=== PATIENT | female | born 1975 | race African-American/Black ===

== ENCOUNTER 2016-08-23 11:26 | Emergency (ER) | payer OTHER ==
[2016-08-23] MEDS: NS 0.9% 1000 ML* 2,000 ML IV ONE ×2 (11:30→12:55)
[2016-08-23] MEDS ORDERED: Ondansetron INJ* 2 MG/ML VIAL IV ONE (12:43)
[2016-08-23] MEDS ORDERED: Morphine INJ* 4 MG/ML 1 ML CARPUJECT IV ONE (13:08)
[2016-08-23] MEDS ORDERED: Acetaminophen TAB* 325 MG PO ONE (13:08)
[2016-08-23 13:15] LABS: Hematocrit 34 % (35-47); Hemoglobin 11.2 g/dl (12.0-16.0); Mean Corpuscular HGB Conc 33 g/dl (31-36); Mean Corpuscular Hemoglobin 28 pg (27-31); Mean Corpuscular Volume 86 fL (80-97); Mean Platelet Volume 9 um3 (7.4-10.4); Red Blood Count 3.97 10^6/ul (4.0-5.4); Red Cell Distribution Width 16 % (10.5-15); White Blood Count 11.4 10^3/ul (3.5-10.8)
[2016-08-23 13:30] LABS: ALT 9 U/L (7-52); AST 10 U/L (13-39); Alkaline Phosphatase 52 U/L (34-104); Anion Gap 10 mmol/L (2-11); BUN/Creatinine Ratio 14.3 (8-20); Blood Urea Nitrogen 14 mg/dL (6-24); C Reactive Protein 3.43 mg/L (< 5.00); CO2 Carbon Dioxide 23 mmol/L (22-32); Calcium 9.4 mg/dL (8.6-10.3); Chloride 102 mmol/L (101-111); EGFR African American 81.3 (>60); EGFR Non-African American 63.2 (>60); Globulin 3.5 g/dL (2-4); Glucose 226 mg/dL (70-100); Lipase 23 U/L (11.0-82.0); Potassium 3.7 mmol/L (3.5-5.0); Sodium 135 mmol/L (133-145); Total Protein 7.5 g/dL (6.4-8.9)
[2016-08-23 15:17] VITALS: BP 103/57
[2016-08-23] MEDS ORDERED: Iodixanol* (CONTRAST) 320 MG/ML 100 ML SDV IV ONE (15:55)
--- NOTE | 2016-08-23 16:25 | RAD ---
Indication: Pain, vomiting and fever. CT of the abdomen and pelvis was performed after oral and IV contrast administration. Coronal and sagittal reconstructed images were obtained. Administered 95.9 ml of Contrast Visipaque 320 mgi/ml was given according to hospital protocol. Lung bases demonstrate no pleural fluid, nodules or masses. Heart is of normal size without evidence of pericardial effusion. Liver is normal in size. No focal lesions or intrahepatic biliary duct dilatation is noted. The spleen is normal in size. The gallbladder demonstrates no calcified gallstones. No pericholecystic fluid or wall thickening is identified. The common duct is not dilated. The pancreas demonstrates no mass or pancreatic duct dilatation. No adrenal masses are noted. The kidneys demonstrate symmetric nephrograms without focal lesions. CT of the pelvis demonstrates normal appendix. There is contrast in the right colon. Diverticulosis of the sigmoid colon is noted. There is a small to moderate amount of free fluid in the cul-de-sac. Myomatous changes of the uterus are noted. The sigmoid colon abuts the free fluid with some mild focal wall thickening. I cannot totally exclude diverticulitis of the sigmoid colon at this level. The urinary bladder is unremarkable. IMPRESSION: SMALL TO MODERATE DEGREE OF FREE FLUID IN THE CUL-DE-SAC WITH DIVERTICULOSIS AND POSSIBLE DIVERTICULITIS OF SIGMOID COLON WHICH IS JUST ADJACENT TO THE FREE FLUID. CLINICAL CORRELATION IS SUGGESTED. NO EVIDENCE OF BOWEL OBSTRUCTION IS NOTED. APPENDIX IS NORMAL.
[2016-08-23] MEDS ORDERED: metroNIDAZOLE TAB* 250 MG PO ONE (17:36)
[2016-08-23] MEDS ORDERED: Ciprofloxacin TAB* 500 MG PO ONE (17:36)
[2016-08-23] MEDS ORDERED: Ondansetron ODT TAB* 4 MG PO ONE (17:37)
--- NOTE | 2016-08-23 17:43 | ED ---
Abilio Kate Billy, scribed for Salomón Whittaker MD on 08/23/16 at 1310 . Complex/Multi-Sys Presentation - HPI Summary HPI Summary: Patient is a 40 year-old female coming to [facility] presenting with intermittent nausea and vomiting since yesterday morning. She also reports intermittent diffuse abdominal pain since last night. She states she felt warm last night. She also reports diffuse myalgia, rhinorrhea, but she denies sore throat. Denies any diarrhea or constipation. Denies any edema. Denies any urinary urgency, frequency, or dysuria. Nothing makes her symptoms better or worse. She has a headache at this time in the ED. Denies PSHx. Positive recent flu shot. - History Of Current Complaint Chief Complaint: EDNauseaVomitDiarrh Time Seen by Provider: 08/23/16 12:17 Hx Obtained From: Patient Onset/Duration: Gradual Onset, Lasting Hours, Still Present Timing: Intermittent, Lasting: Severity Currently: Moderate Severity Initially: Moderate Location: Pain At: - abdomen Character: Typical Headache Aggravating Factor(s): nothing Alleviating Factor(s): nothing Associated Signs And Symptoms: Positive: Headache, Nausea, Vomiting, Abdominal Pain, Fever - felt "warm" last night, Other - diffuse myalgia, rhinorrhea,. Negative: Edema, Diarrhea, Dysuria - Allergies/Home Medications Allergies/Adverse Reactions: Allergies Allergy/AdvReac Type Severity Reaction Status Date / Time No Known Allergies Allergy Verified 08/23/16 12:28 Home Medications: Home Medications Atorvastatin* [Lipitor*] 10 mg PO DAILY 08/23/16 [History Confirmed 08/23/16] DULoxetine CAP* [Cymbalta CAP*] 60 mg PO DAILY 08/23/16 [History Confirmed ] Liraglutide (NF) [Victoza (NF)] 1.2 mg SUBCUT QAM 08/23/16 [History Confirmed ] Norethin Acet & Estrad-Fe [Blisovi Fe 08/18 1-20 mg-Mcg] 1 tab PO DAILY 08/23/16 [History Confirmed 08/23/16] Valsartan/HCTZ 320/25(NF) [Diovan Hct 320/25(NF)] 1 tab PO DAILY 08/23/16 [ History Confirmed 08/23/16] metFORMIN* [Glucophage*] 1,000 mg PO BID 08/23/16 [History Confirmed 08/23/16] PMH/Surg Hx/FS Hx/Imm Hx Endocrine/Hematology History: Reports: Hx Diabetes Cardiovascular History: Reports: Hx Congestive Heart Failure, Hx Hypertension Infectious Disease History: No Infectious Disease History: Denies: Traveled Outside the [place] in Last 30 Days - Family History Known Family History: Positive: Diabetes - Social History Alcohol Use: None Substance Use Type: Reports: None Smoking Status (MU): Never Smoked Tobacco Review of Systems Positive: Fever - felt "warm" Positive: Nasal Discharge. Negative: Sore Throat Positive: Abdominal Pain, Vomiting, Nausea. Negative: Diarrhea Negative: dysuria, frequency, urgency Positive: Myalgia. Negative: Edema Positive: Headache All Other Systems Reviewed And Are Negative: Yes Physical Exam Triage Information Reviewed: Yes Vital Signs On Initial Exam: Initial Vitals Temp Pulse Resp BP Pulse Ox 100.2 F 72 18 189/101 99 08/23/16 11:28 08/23/16 11:28 08/23/16 11:28 08/23/16 11:28 08/23/16 11:28 Vital Signs Reviewed: Yes Appearance: Positive: No Pain Distress, Ill-Appearing - mildly ill-appearing Skin: Positive: Warm, Skin Color Reflects Adequate Perfusion, Dry Head/Face: Positive: Normal Head/Face Inspection Eyes: Positive: EOMI, MIKHAIL ENT: Positive: Other - dry mucous membranes Neck: Positive: Supple, Nontender Respiratory/Lung Sounds: Positive: Clear to Auscultation, Breath Sounds Present Cardiovascular: Positive: RRR Abdomen Description: Positive: Other: - mild diffuse tenderness Bowel Sounds: Positive: Hypoactive Musculoskeletal: Positive: Normal, Strength/ROM Intact Neurological: Positive: Normal, Sensory/Motor Intact, Alert, Oriented to Person Place, Time Psychiatric: Positive: Affect/Mood Appropriate Diagnostics - Vital Signs Vital Signs Temp Pulse Resp BP Pulse Ox 08/23/16 12:07 80 98 08/23/16 12:06 185/99 08/23/16 11:28 100.2 F 72 18 189/101 99 - Laboratory Lab Results: Lab Results 08/23/16 08/23/16 08/23/16 Range/Units 13:05 13:05 13:05 WBC 11.4 H (3.5-10.8) 10^3/ul RBC 3.97 L (4.0-5.4) 10^6/ul Hgb 11.2 L (12.0-16.0) g/dl Hct 34 L (35-47) % MCV 86 (80-97) fL MCH 28 (27-31) pg MCHC 33 (31-36) g/dl RDW 16 H (10.5-15) % Plt Count 292 (150-450) 10^3/ul MPV 9 (7.4-10.4) um3 Neut % (Auto) 76.9 (38-83) % Lymph % (Auto) 15.3 L (25-47) % [place] % (Auto) 7.2 (1-9) % Eos % (Auto) 0 (0-6) % Baso % (Auto) 0.6 (0-2) % Absolute Neuts (auto) 8.8 H (1.5-7.7) 10^3/ul Absolute Lymphs (auto) 1.7 (1.0-4.8) 10^3/ul Absolute Monos (auto) 0.8 (0-0.8) 10^3/ul Absolute Eos (auto) 0 (0-0.6) 10^3/ul Absolute Basos (auto) 0.1 (0-0.2) 10^3/ul Absolute Nucleated RBC 0.01 10^3/ul Nucleated RBC % 0.1 INR (Anticoag Therapy) 0.97 (0.89-1.11) APTT 24.0 L (26.0-36.3) seconds Sodium 135 (133-145) mmol/L Potassium 3.7 (3.5-5.0) mmol/L Chloride 102 (101-111) mmol/L Carbon Dioxide 23 (22-32) mmol/L Anion Gap 10 (2-11) mmol/L BUN 14 (6-24) mg/dL Creatinine 0.98 H (0.51-0.95) mg/dL Est GFR ( Amer) 81.3 (>60) Est GFR (Non-Af Amer) 63.2 (>60) BUN/Creatinine Ratio 14.3 (8-20) Glucose 226 H (70-100) mg/dL Lactic Acid (0.5-2.0) mmol/L Calcium 9.4 (8.6-10.3) mg/dL Total Bilirubin 0.90 (0.2-1.0) mg/dL AST 10 L (13-39) U/L ALT 9 (7-52) U/L Alkaline Phosphatase 52 (34-104) U/L C-Reactive Protein 3.43 (< 5.00) mg/L B-Natriuretic Peptide ( - 100) pg/mL Total Protein 7.5 (6.4-8.9) g/dL Albumin 4.0 (3.2-5.2) g/dL Globulin 3.5 (2-4) g/dL Albumin/Globulin Ratio 1.1 (1-3) Lipase 23 (11.0-82.0) U/L Beta HCG, Quant < 0.60 mIU/mL Influenza A (Rapid) (Negative) Influenza B (Rapid) (Negative) 08/23/16 08/23/16 08/23/16 Range/Units 13:05 13:05 14:53 WBC (3.5-10.8) 10^3/ul RBC (4.0-5.4) 10^6/ul Hgb (12.0-16.0) g/dl Hct (35-47) % MCV (80-97) fL MCH (27-31) pg MCHC (31-36) g/dl RDW (10.5-15) % Plt Count (150-450) 10^3/ul MPV (7.4-10.4) um3 Neut % (Auto) (38-83) % Lymph % (Auto) (25-47) % [place] % (Auto) (1-9) % Eos % (Auto) (0-6) % Baso % (Auto) (0-2) % Absolute Neuts (auto) (1.5-7.7) 10^3/ul Absolute Lymphs (auto) (1.0-4.8) 10^3/ul Absolute Monos (auto) (0-0.8) 10^3/ul Absolute Eos (auto) (0-0.6) 10^3/ul Absolute Basos (auto) (0-0.2) 10^3/ul Absolute Nucleated RBC 10^3/ul Nucleated RBC % INR (Anticoag Therapy) (0.89-1.11) APTT (26.0-36.3) seconds Sodium (133-145) mmol/L Potassium (3.5-5.0) mmol/L Chloride (101-111) mmol/L Carbon Dioxide (22-32) mmol/L Anion Gap (2-11) mmol/L BUN (6-24) mg/dL Creatinine (0.51-0.95) mg/dL Est GFR ( Amer) (>60) Est GFR (Non-Af Amer) (>60) BUN/Creatinine Ratio (8-20) Glucose (70-100) mg/dL Lactic Acid 1.9 (0.5-2.0) mmol/L Calcium (8.6-10.3) mg/dL Total Bilirubin (0.2-1.0) mg/dL AST (13-39) U/L ALT (7-52) U/L Alkaline Phosphatase (34-104) U/L C-Reactive Protein (< 5.00) mg/L B-Natriuretic Peptide 164 H ( - 100) pg/mL Total Protein (6.4-8.9) g/dL Albumin (3.2-5.2) g/dL Globulin (2-4) g/dL Albumin/Globulin Ratio (1-3) Lipase (11.0-82.0) U/L Beta HCG, Quant mIU/mL Influenza A (Rapid) Negative (Negative) Influenza B (Rapid) Negative (Negative) Result Diagrams: 08/23/16 13:05 08/23/16 13:05 Lab Statement: Any lab studies that have been ordered have been reviewed, and results considered in the medical decision making process. - CT abd/pel w CT Interpretation Completed By: Radiologist - SMALL TO MODERATE DEGREE OF FREE FLUID IN THE CUL-DE-SAC WITH DIVERTICULOSIS AND POSSIBLE DIVERTICULITIS OF SIGMOID COLON WHICH IS JUST ADJACENT TO THE FREE FLUID. CLINICAL CORRELATION IS SUGGESTED. NO EVIDENCE OF BOWEL OBSTRUCTION IS NOTED. APPENDIX IS NORMAL. - EKG 1156 Cardiac Rate: NL EKG Rhythm: Sinus Rhythm ST Segment: Normal Ectopy: None EKG Interpretation: NSR 76 bpm, no ectopy, nml ST Re-Evaluation - Re-Evaluation First Eval Re-Evaluation Time: 17:08 Change: Improved Comment: Labs and imaging reviewed with the patient. Complex Multi-Symp Course/Dx Assessment/Plan: DISCUSSED RESULTS WITH PATIENT. IMPROVED IN ED. DISCHARGE HOME STABLE. - Diagnoses Provider Diagnoses: Abdominal pain, Nausea & vomiting, Diverticulitis Discharge - Discharge Plan Condition: Stable Disposition: HOME Prescriptions: Ciprofloxacin TAB* [Cipro Tab*] 500 mg PO BID #13 tab Metronidazole [Flagyl 500 MG TAB] 500 mg PO TID #20 tab Ondansetron ODT TAB* [Zofran Odt TAB*] 4 mg PO Q6H PRN #10 tab.odt PRN Reason: Nausea Patient Education Materials: Diverticulitis (ED), Acute Nausea and Vomiting (ED ), Acute Abdominal Pain (ED) Referrals: Ruby Miller MD [Primary Care Provider] - Additional Instructions: FOLLOW UP WITH YOUR DOCTOR. RETURN TO THE EMERGENCY DEPARTMENT FOR ANY WORSENING OF YOUR CONDITION; PAIN, FEVER, YOU FEEL ILL OR QUESTIONS OR CONCERNS. The documentation as recorded by the Abilio harper Billy accurately reflects the service I personally performed and the decisions made by me, Salomón Whittaker MD.
== END 2016-08-23 18:15 | disposition home or self-care (01) ==
LOC: ED 11:26
DX: R11.2 Nausea with vomiting, unspecified (principal); R10.9 Unspecified abdominal pain; K57.92 Diverticulitis of intestine, part unspecified, without perforation or abscess without bleeding; I50.9 Heart failure, unspecified; I10 Essential (primary) hypertension
CPT/HCPCS: 36415; 74177; 80053; 83605; 83690; 83880; 84702; 85025; 85610; 85730; 86140; 87502; 93005; 96360; 96374; 96375; 99282; A9270-GY; J2270; J2405; Q9967

== ENCOUNTER 2016-10-24 17:19 | Observation (INO) | payer OTHER ==
[2016-10-24] MEDS ORDERED: Ondansetron INJ* 2 MG/ML VIAL IV ONE (17:48)
[2016-10-24] MEDS: NS 0.9% 1000 ML* 2,000 ML IV ONE (17:59)
[2016-10-24 18:05] LABS: Hematocrit 39 % (35-47); Hemoglobin 12.4 g/dl (12.0-16.0); Mean Corpuscular HGB Conc 32 g/dl (31-36); Mean Corpuscular Hemoglobin 28 pg (27-31); Mean Corpuscular Volume 88 fL (80-97); Mean Platelet Volume 9 um3 (7.4-10.4); Red Blood Count 4.39 10^6/ul (4.0-5.4); Red Cell Distribution Width 14 % (10.5-15); White Blood Count 13.8 10^3/ul (3.5-10.8)
[2016-10-24 18:29] LABS: ALT 11 U/L (7-52); AST 14 U/L (13-39); Albumin 4.4 g/dL (3.2-5.2); Alkaline Phosphatase 53 U/L (34-104); Anion Gap 12 mmol/L (2-11); BUN/Creatinine Ratio 15.8 (8-20); Blood Urea Nitrogen 27 mg/dL (6-24); C Reactive Protein < 1.00 mg/L (< 5.00); CO2 Carbon Dioxide 23 mmol/L (22-32); Calcium 9.9 mg/dL (8.6-10.3); Chloride 98 mmol/L (101-111); Creatine Kinase 69 U/L (10-223); EGFR African American 42.5 (>60); EGFR Non-African American 33.1 (>60); Globulin 3.8 g/dL (2-4); Glucose 253 mg/dL (70-100); Magnesium 1.6 mg/dL (1.9-2.7); Potassium 3.8 mmol/L (3.5-5.0); Sodium 133 mmol/L (133-145); Total Protein 8.2 g/dL (6.4-8.9)
[2016-10-24 18:43] LABS: Lithium < 0.10 mmol/L (0.6-1.2)
--- NOTE | 2016-10-24 18:48 | RAD ---
HISTORY: Syncope COMPARISONS: None VIEWS:1: Single frontal portable view of the chest at 6:20 PM FINDINGS: LINES AND TUBES: None. CARDIOMEDIASTINAL SILHOUETTE: The cardiomediastinal silhouette is normal for portable technique. PLEURA: The costophrenic angles are sharp. No pleural abnormalities are noted. LUNG PARENCHYMA: The lungs are clear. ABDOMEN: The upper abdomen is clear. There is no subphrenic gas. BONES AND SOFT TISSUES: No bone or soft tissue abnormalities are noted. IMPRESSION: NO ACTIVE CARDIOPULMONARY DISEASE.
[2016-10-24 18:53] LABS: TSH (Thyroid Stimulating Horm) 3.39 mcIU/mL (0.34-5.60)
[2016-10-24] MEDS ORDERED: Iodixanol* (CONTRAST) 320 MG/ML 100 ML SDV IV ONE (20:09)
--- NOTE | 2016-10-24 20:10 | ED ---
Lino Kate Adam, scribed for Salomón Whittaker MD on 10/24/16 at 1748 . Syncope/Near Syncope - HPI Summary HPI Summary: Pt is a 41 year old female presenting after a syncopal episode. 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 Shortly afterwards she passed out with positive LOC and then had a second syncopal episode immediately afterwards. She denies any CP, N/V/D, bloody stools , black stools, GERD, or other GI problems. She states that she had not eaten anything all day prior to the syncopal episode. EMS reports hypotension and severe diaphoresis en route to the ED. PMHx of HTN, CHF, and DM. - History Of Current Complaint Chief Complaint: EDSyncope Time Seen by Provider: 10/24/16 17:41 Hx Obtained From: Patient Onset/Duration: Sudden Onset, Lasting Minutes, Resolved Timing: Constant Context: Witnessed Activity At Onset: At Rest - Sitting down, teaching a college class Associated Head Trauma: No Aggravating Factor(s): Other - Nothing to eat all day Alleviating Factor(s): Spontaneous Resolution Associated Signs And Symptoms: Lightheadedness, Other - Feeling hot - Allergies/Home Medications Allergies/Adverse Reactions: Allergies Allergy/AdvReac Type Severity Reaction Status Date / Time Lisinopril Allergy See Comment Verified 10/24/16 17:57 all "prils" Allergy See Comment Uncoded 10/24/16 17:58 PMH/Surg Hx/FS Hx/Imm Hx Endocrine/Hematology History: Reports: Hx Diabetes Cardiovascular History: Reports: Hx Congestive Heart Failure, Hx Hypertension Infectious Disease History: Denies: Traveled Outside the [place] in Last 30 Days - Family History Known Family History: Positive: Diabetes - Social History Occupation: Employed Full-time Lives: With Family - Mother Alcohol Use: None Hx Substance Use: No Substance Use Type: Reports: None Hx Tobacco Use: No Smoking Status (MU): Never Smoked Tobacco Review of Systems Positive: Skin Diaphoresis, Other - [place] hot. Negative: Fever Neurological: Other - Lightheadedness Positive: Syncope All Other Systems Reviewed And Are Negative: Yes Physical Exam Triage Information Reviewed: Yes Vital Signs On Initial Exam: Initial Vitals Temp Pulse Resp BP Pulse Ox 97.5 F 115 16 88/64 98 10/24/16 17:31 10/24/16 17:31 10/24/16 17:31 10/24/16 17:31 10/24/16 17:31 Vital Signs Reviewed: Yes Appearance: Positive: Well-Appearing, No Pain Distress Skin: Positive: Warm, Skin Color Reflects Adequate Perfusion, Dry Head/Face: Positive: Normal Head/Face Inspection Eyes: Positive: EOMI, MIKHAIL ENT: Positive: Normal ENT inspection Neck: Positive: Supple, Nontender Respiratory/Lung Sounds: Positive: Clear to Auscultation, Breath Sounds Present Cardiovascular: Positive: RRR, Other - Hypotensive Abdomen Description: Positive: Nontender, Soft Bowel Sounds: Positive: Present Musculoskeletal: Positive: Normal, Strength/ROM Intact Neurological: Positive: Normal, Sensory/Motor Intact, Alert, Oriented to Person Place, Time Psychiatric: Positive: Affect/Mood Appropriate Diagnostics - Vital Signs Vital Signs Temp Pulse Resp BP Pulse Ox 10/24/16 17:31 97.5 F 115 16 88/64 98 - Laboratory Lab Results: Lab Results 10/24/16 Range/Units 17:37 POC Glucose (mg/dL) 212 H (74-106) mg/dL Result Diagrams: 10/24/16 17:48 10/24/16 17:48 Lab Statement: Any lab studies that have been ordered have been reviewed, and results considered in the medical decision making process. - Radiology CXR Radiology Interpretation Completed By: Radiologist - IMPRESSION: NO ACTIVE CARDIOPULMONARY DISEASE. - EKG 17:34 Cardiac Rate: Tachycardia - 114 BPM EKG Rhythm: Sinus Tachycardia Ectopy: None EKG Interpretation: Probable left atrial enlargement - Additional Comments Diagnostic Additional Comments: Lactic Acid - 4.1 Troponin I - 0.00 Course/Dx Course Of Treatment: No critical care time. Assessment/Plan: WELL IN ED. DISCUSSED RESULTS WITH PATIENT. ADMIT HOSPITALIST STABLE. - Diagnoses Provider Diagnoses: Syncope, Tachycardia, Hypomagnesemia Discharge - Discharge Plan Condition: Stable Disposition: ADMITTED TO [facility] Referrals: Ruby Miller MD [Primary Care Provider] - The documentation as recorded by the Lino harper Adam accurately reflects the service I personally performed and the decisions made by me, Salomón Whittaker MD.
[2016-10-24] MEDS ORDERED: Ondansetron INJ* 2 MG/ML VIAL IV PRN (20:51)
[2016-10-24] MEDS ORDERED: Acetaminophen TAB* 325 MG PO PRN (20:51)
[2016-10-24] MEDS ORDERED: Dextrose 50% Syringe 50 ML* 25 GM/50 ML SYRINGE IV PUSH PRN (21:05)
[2016-10-24] MEDS ORDERED: Magnesium Sulfate IV* 0.5 GM/ML 2 ML VIAL (1 GM) ONE (21:27)
--- NOTE | 2016-10-24 22:09 | RAD ---
HISTORY: Syncope, tachycardia COMPARISONS: None TECHNIQUE: Multiple contiguous axial CT scans of the chest were obtained after the administration of nonionic intravenous contrast, timed to the pulmonary arterial phase of contrast enhancement.. Coronal and sagittal multiplanar reformations are also submitted for review. FINDINGS: NECK AND THYROID: The lower neck and thyroid are unremarkable. CHEST WALL: There is no lower cervical, axillary, or supraclavicular lymphadenopathy by size criteria. HEART AND PERICARDIUM: The heart is unremarkable. AORTA AND PULMONARY VASCULATURE: There is no pulmonary arterial filling defect to suggest pulmonary embolism. There is no linear filling defect within the aorta to suggest aortic dissection. MEDIASTINUM: There is no mediastinal lymphadenopathy by size criteria. ZANE: There is no hilar lymphadenopathy by size criteria. AIRWAY AND ESOPHAGUS: The airway is unremarkable, without endobronchial filling defect. The esophagus is grossly normal. LUNG PARENCHYMA: There is patchy ground less nodular opacification within the left lower lobe and right upper lobe measuring up to 1.2 cm in size. PLEURA: No pleural abnormalities are noted. UPPER ABDOMEN: The upper abdomen is unremarkable. BONES AND SOFT TISSUES: No bone or soft tissue abnormalities are noted. OTHER: None. IMPRESSION: 1. NO PULMONARY ARTERIAL FILLING DEFECT TO SUGGEST PULMONARY EMBOLISM. 2. PATCHY GROUNDGLASS NODULARITY OF THE LEFT LOWER LUNG AND RIGHT UPPER LUNG. WHILE THIS MAY BE INFECTIOUS OR INFLAMMATORY IN NATURE, THE IMAGING APPEARANCE IS INDETERMINATE. THE RECOMMENDATIONS FOR FOLLOWUP AND MANAGEMENT OF AN INCIDENTALLY DETECTED PULMONARY NODULE GREATER THAN 8 MM IN SIZE, IN A PATIENT WITHOUT A HISTORY OF MALIGNANCY, INCLUDE FOLLOWUP CT AT 3, 9, AND 24 MONTHS, DYNAMIC CONTRAST-ENHANCED CT, PET-CT, AND/OR BIOPSY. NOTES: SIZE = AVERAGE LENGTH AND WIDTH; NODULES WITH A GROUND GLASS COMPONENT MAY REQUIRE LONGER FOLLOW UP TO EXCLUDE INDOLENT ADENOCARCINOMA.
[2016-10-24] MEDS: NS 0.9% 1000 ML* 1,000 ML IV SCH (23:37)
--- NOTE | 2016-10-25 00:24 | HP ---
HISTORY AND PHYSICAL: DATE OF ADMISSION: 10/24/16 PRIMARY CARE PROVIDER: Dr. Ruby Miller. ATTENDING PROVIDER: Mirna Powell MD * (dictated by Marques Hernandez NP) CHIEF COMPLAINT: Syncope. HISTORY OF PRESENT ILLNESS: Ms. Ledbetter is a 41-year-old female patient. She has a history of cardiomyopathy, they think viral. Her EF was restored according to her back in 2006. She is diabetic, history of CHF, not active now ; history of hypertension; hyperlipidemia; and uterine fibroids. She comes in today stating that when she was walking to class, she noticed that she was having some dyspnea a little bit more the normal. Denied having any chest pain. She says recently she was on a control pill, stopped 2 weeks ago because of excessive bleeding. She says she sat down. She was feeling hot flashes, feeling warm, she felt nauseous, she was sitting, leaned forward and the next thing she knew that she had tunneled vision and the next think she knew her students were standing over her trying to get her to awaken. Apparently, the students tried standing her up and then she had another episode where she fainted again with standing her up. She denied having any shortness of breath right before the event or any chest pain, but she did admit to dyspnea on exertion. She denied having any abdominal pain. She said she vomited, had 1 episode of diarrhea. She states her appetite has been down for the last couple of days. She has not really been eating or drinking. She has been taking her mild diuretics though continuously like she is supposed to and also she has increased her Victoza at 1.2 mg and she says her appetite has been suppressed. She denies having any fevers or chills. No abdominal discomfort. She says she does not have pain with breathing. She has passed out once before and again, she denied having any palpitation. She came in, she was evaluated, it was found that she was in acute renal failure. In addition to this, her lactic acid was elevated and it was also noted that she was tachycardic and her blood pressures were on the low side, they were 88/64. She says that she does not feel lightheaded now. She just feels cold and denies having any chest discomfort. She was evaluated. Because of the syncopal episode, we were asked to evaluate for admission. PAST MEDICAL HISTORY: Significant for: 1. History of CHF. 2. Diabetes. 3. Viral cardiomyopathy. 4. Hypertension. 5. Hyperlipidemia. 6. Uterine fibroid. PAST SURGICAL HISTORY: Denied. HOME MEDICATIONS: According to her last primary's note, include: 1. Victoza 1.2 mg subcu q.a.m. 2. Cymbalta 60 mg daily. 3. Lipitor 10 mg daily. This was stopped, but the patient restarted it on her own. 4. Glucophage 1000 mg p.o. b.i.d. 5. Diovan/hydrochlorothiazide 1 tablet daily. 6. Zofran 4 mg every 6 hours as needed. ALLERGIES TO MEDICATIONS: Include LISINOPRIL. FAMILY HISTORY: Both her parents had coronary artery disease. Mother had a provoked blood clot after her surgery. Her father had a history of diabetes. SOCIAL HISTORY: She does not smoke. She does not drink. She is a teacher at [email or web address]. She does not appoint a healthcare proxy at this point. REVIEW OF SYSTEMS: There is no documented fever. She denied having any significant weight change. There was no double vision. She denies having any ear discharge. There is no rhinorrhea. No sore throat. No thyroid enlargement. She denies having any chest pain. No shortness of breath. No orthopnea. No nocturnal dyspnea. There was no abdominal pain. No nausea. No vomiting. No dysuria. No frequency. No seizure. There was a loss of consciousness. No pruritus and no skin ulcerations. Review of 14 systems completed, all others were negative. PHYSICAL EXAMINATION GENERAL: At this time, Ms. Ledbetter is a 41-year-old female patient. She does not appear to be in any acute distress. She is sitting in the ER stretcher. She is awake and she is alert. VITAL SIGNS: Blood pressure 88/64, last blood pressure was 114/86. Her heart rate was 115 when she came in, it is now 104. O2 sats are 100%; respirations 18 ; temp 97.9. HEENT: Head is atraumatic, normocephalic. Eyes: EOMs are intact. Sclerae anicteric and not pale. Throat: Oral mucosa appeared to be dry. No oropharyngeal erythema. NECK: Supple. LUNGS: Clear to auscultation bilaterally. No wheezes, rales, or rhonchi. HEART: Sounds S1, S2. Regular rate and rhythm. She is tachycardic. ABDOMEN: Soft, flat, nontender. Bowel sounds were present. EXTREMITIES: Pulses were 2+ throughout. She is able to move all 4 extremities. NEUROLOGIC: She is awake, alert, and oriented x3. Tongue midline. Audio Production Manager were equal. She had no gross focal deficits. SKIN: Intact. LABORATORY DATA/DIAGNOSTIC STUDIES: Today revealed a WBC of 13.8, RBC of 4.39 , hemoglobin 12.4, hematocrit 39, platelet count of 311. INR of 0.89, PTT of 23.7. The sodium 133, potassium 3.8, chloride of 98, bicarb 23, BUN 27, creatinine 1.71, baseline creatinine is right around 1, her glucose was 250, lactic 4.1, calcium 9.9, mag 1.6, being replaced. Total bili 0.8, AST 14, ALT 11, alk phos 53. CK 69, CK-MB 1, troponin 0, CRP less than 1. TSH 3.36. Beta hCG negative. Toxicology was negative for lithium. She had a chest x-ray obtained today, which revealed no active cardiopulmonary disease. There was an EKG obtained today, showed sinus tachycardia with ST depressions in V4, 5, and 6, it is subtle. She has had a depression in V5 and 6 in the past , 4 was not depressed in the past. Again, she is tachycardic, rate of 114. Old medical records were reviewed. ASSESSMENT AND PLAN: Ms. Ledbetter is a 41-year-old female patient coming into the ER today with complaints of syncopal episode while sitting down at work. On evaluation in the ER today, it was noted that she appeared to be in acute renal failure, lactic acid was elevated, she was hypotensive and tachy when she came in. Hospitalist service was asked to evaluate. She will be admitted under observation status to our ICU for: 1. Syncope. Etiology is unclear. You know I am concerned. She came in, she is tachy, hypotensive. I do think we should check a CTA. She was on control recently. She did have that dyspnea on exertion prior to the event and she was sitting down. I would like to place her on telemetry, do the CTA, check an echo, check orthostatics. It could be just dehydration but with dyspnea on exertion, I would like to make sure there are not any other etiologies. We will hydrate the patient and we will continue to follow. 2. Lactic acidosis. This could be related to the fact she was taking metformin and her kidney function has gone up. I do not think she is actively infected. She does have a little bit of a white count, but I think this is stress related, a leukemoid reaction causing the leukocytosis, so I think we will just hydrate her and monitor. If she had any fever, then I will put her on empiric antibiotic therapy and we will repeat the lactic acid after fluids. 3. Acute renal failure, again probably secondary to prerenal related to dehydration. She was taking hydrochlorothiazide. She has not really been eating or drinking. I will send off a FENa. We will get a bladder scan. We will follow. 4. Low magnesium. We will replace. 5. History of cardiomyopathy and congestive heart failure. She says her EF is back to baseline now, so it has probably resolved. We will repeat the echo. 6. Diabetes. She will be on a lispro sliding scale. 7. Hypertension. I am going to hold her meds for the time being as she was hypotensive when she came in. Her blood pressure is improving. 8. Hyperlipidemia. Continue statin therapy. 9. Uterine fibroid. Her H and H is stable. She can follow up with her primary for this. In fact, H and H appears a little hemoconcentrated, so I think again arguing that she is probably dehydrated. 10. DVT prophylaxis. She will be placed on heparin subcu. 11. Code status. Full code. 12. Fluid, electrolytes, and nutrition. She can have a consistent carb diet. TIME SPENT: Time spent on the admission was 60 minutes; greater than half the time spent [id number] with the patient obtaining my history and physical, the other half the time was spent going over the plan of care with the patient and implementing the plan of care. I did discuss the plan of care with my attending physician, Dr. Coreas, he is in agreement. MARQUES HERNANDEZ NP CC: Dr. Ruby Miller* [id number]/[facility] #: [id number] JOSEPH
[2016-10-25] MEDS: Heparin VIAL(*) 5000 UNITS/ML VIAL (FIVE THOUSAND) SUBCUT SCH ×4 (02:19→22:00)
[2016-10-25 04:39] LABS: Urine Bacteria Absent (Absent); Urine Bilirubin Negative (Negative); Urine Glucose 1+(50 mg/dL) (Negative); Urine Nitrite Negative (Negative)
[2016-10-25 05:19] LABS: Hematocrit 31 % (35-47); Hemoglobin 10.2 g/dl (12.0-16.0); Mean Corpuscular HGB Conc 33 g/dl (31-36); Mean Corpuscular Hemoglobin 29 pg (27-31); Mean Corpuscular Volume 88 fL (80-97); Mean Platelet Volume 9 um3 (7.4-10.4); Red Blood Count 3.52 10^6/ul (4.0-5.4); Red Cell Distribution Width 14 % (10.5-15); White Blood Count 8.3 10^3/ul (3.5-10.8)
[2016-10-25 05:33] LABS: BUN/Creatinine Ratio 24.8 (8-20); EGFR African American 74.6 (>60); Magnesium 2.4 mg/dL (1.9-2.7)
[2016-10-25 05:35] LABS: Potassium 3.7 mmol/L (3.5-5.0)
[2016-10-25 05:40] LABS: Calcium 8.1 mg/dL (8.6-10.3)
[2016-10-25] MEDS: NS 0.9% 1000 ML* 1,000 ML IV SCH (07:51)
[2016-10-25] MEDS: Insulin LISPRO* 1 UNITS UNIT SUBCUT SCH ×3 (08:28→17:49)
[2016-10-25] MEDS: Atorvastatin* 10 MG TAB PO SCH (08:38)
[2016-10-25] MEDS: DULoxetine DR CAP* 60 MG CAP.DR PO SCH (08:38)
[2016-10-25] MEDS ORDERED: NS 0.9% 1000 ML* 1,000 ML IV SCH (10:00)
--- NOTE | 2016-10-25 13:00 | ECHO ---
Patient: MONICA SELLERS [facility] Rec#: [id number] : 1975 Date: 10/25/2016 Age: 41y Height: 154.9 cm / 61.0 in Weight: 70.8 kg / 156.0 lbs Sex: F BSA: 1.7 Room#: ICU 9 Admit Date#: 10/24/2016 Type: Inpatient Referring: Marques Hernandez NP Reading: Jackelin Rae MD Grant Coordinator: Елена Guzman RN RDCS CC: JOSEPH HUNT Transthoracic Echocardiogram Indication: Syncope, hypotension BP: 105/60 HR: 80 Rhythm: NSR Findings History: Viral cardiomyopathy in 2006, CHF, HTN, DM, dyslipidemia. Technical Comments: The study quality is fair. The study is technically limited due to patient body habitus. Completed at 1120. Left Ventricle: The left ventricular chamber size is normal. There is global hypokinesis of the left ventricle with minor regional variation.septum appears dyskinetic. There is mild to moderately decreased left ventricular systolic function. The estimated ejection fraction is 40-45%. Abnormal left ventricular diastolic function is observed. Left Atrium: The left atrial chamber size is normal. Right Ventricle: The right ventricular cavity size is normal. The right ventricular global systolic function is low normal. Right Atrium: The right atrial cavity size is normal. There is evidence of an atrial septal aneurysm. Aortic Valve: The aortic valve is trileaflet. There is no evidence of aortic regurgitation. There is no evidence of aortic stenosis. Mitral Valve: The mitral valve leaflets are mildly thickened. There is mild mitral regurgitation. There is no evidence of mitral stenosis. Tricuspid Valve: The tricuspid valve leaflets are normal. There is trace to mild tricuspid regurgitation. No pulmonary hypertension is noted. There is no tricuspid stenosis. Pulmonic Valve: The pulmonic valve appears normal. There is trace to mild pulmonic regurgitation. There is no pulmonic stenosis. Pericardium: A trivial pericardial effusion is visualized. A pericardial fat pad is visualized. Aorta: There is no dilatation of the ascending aorta. There is no dilatation of the aortic arch. The aortic root is normal in size. Pulmonary Artery: The main pulmonary artery appears normal. Venous: The inferior vena cava appears normal in size. There is less than 50% respiratory change in the inferior vena cava dimension. Conclusions There is global hypokinesis of the left ventricle with minor regional variation.septum appears dyskinetic. The estimated ejection fraction is 40-45%. The right ventricular global systolic function is low normal. There is evidence of an atrial septal aneurysm. There is mild mitral regurgitation, eccentric jet directed along the anterior leaflet. There is trace to mild tricuspid regurgitation. Prior echos not available for comparison. Measurements Name Value Normal Range RVIDd (AP) 2D 2.8 cm (0.9 - 2.6) RVDdMajor (2D) 3.1 cm (2.2 - 4.4) RAd ISD 4CH 3.4 cm (3.4 - 4.9) RA (A4C)W 3.3 cm (2.9 - 4.6) IVSd (2D) 0.9 cm (0.6 - 1) LVPWd (2D) 0.9 cm (0.6 - 1) LVIDd (2D) 3.8 cm (3.6 - 5.4) LVIDs (2D) 3 cm - LV FS (2D) 21 % (25 - 45) Aortic Annulus 2 cm (1.4 - 2.6) Ao root diameter (2D) 3 cm (2.1 - 3.5) Ascending Ao 2.7 cm (2.1 - 3.4) Aortic arch 2.4 cm (1.8 - 3.4) LA dimension (AP) 2D 2.8 cm (2.3 - 3.8) LAd ISD 4CH 3.6 cm (2.9 - 5.3) LA ISD 4CH W 3.2 cm (2.5 - 4.5) Name Value Normal Range LA ESV SP 4CH (A/L) 22 ml - LA ESV SP 2CH (A/L) 29 ml - LA ESV BP (A/L) 26 ml - LA ESV BP (A/L) index 15.2 ml/m2 - LA ESV SP 4CH (MOD) 18 ml - LA ESV SP 2CH (MOD) 28 ml - Name Value Normal Range MV E-wave Vmax 0.75 m/sec - MV deceleration time 193 msec - MV A-wave Vmax 0.77 m/sec - MV E:A ratio 1 ratio - LV septal e' Vmax 0.06 m/sec - LV lateral e' Vmax 0.11 m/sec - LV E:e' septal ratio 12.5 ratio - LV E:e' lateral ratio 6.8 ratio - Name Value Normal Range AV Vmax 1.4 m/sec - AV VTI 26.4 cm - AV peak gradient 6.8 mmHg - AV mean gradient 4 mmHg - LVOT Vmax 0.93 m/sec - LVOT VTI 17.5 cm - DAVI Vmax 0.67 m/sec - Name Value Normal Range TR Vmax 1.9 m/sec - TR peak gradient 14 mmHg - RAP 8 mmHg - RVSP 22 mmHg - IVC diameter 1.3 cm - Name Value Normal Range PV Vmax 0.71 m/sec -
--- NOTE | 2016-10-25 14:19 | PN ---
Subjective Date of Service: 10/25/16 Interval History: Pt stated that she developed N/V/D just before her first syncope and had another syncope when on toilet seat yesterday. today c/o no abd pain and nausea resolved. no diarrhea noted. Feels tired, but well. Objective Active Medications: Acetaminophen (Tylenol Tab*) 650 mg PO Q4H PRN PRN Reason: FEVER/PAIN Atorvastatin Calcium (Lipitor*) 10 mg PO DAILY [facility] Last Admin: 10/25/16 08:38 Dose: 10 mg Dextrose (D50w Syringe 50 Ml*) 12.5 gm IV PUSH .FOR FS < 60 - SS PRN PRN Reason: FS < 60 Duloxetine HCl (Cymbalta Cap*) 60 mg PO DAILY [facility] Last Admin: 10/25/16 08:38 Dose: 60 mg Heparin Sodium (Porcine) (Heparin Vial(*)) 5,000 units SUBCUT Q8HR [facility] Last Admin: 10/25/16 12:56 Dose: Not Given Sodium Chloride (Ns 0.9% 1000 Ml*) 1,000 mls @ 75 mls/hr IV PER RATE [facility] Stop: 10/25/16 23:59 Insulin Human Lispro (Humalog*) 0 units SUBCUT AC [facility] PRN Reason: Protocol Last Admin: 10/25/16 12:53 Dose: 3 units Ondansetron HCl (Zofran Inj*) 4 mg IV Q6H PRN PRN Reason: NAUSEA Vital Signs 10/24/16 10/24/16 10/24/16 20:51 21:00 21:16 Temperature 98.0 F Pulse Rate 106 104 Respiratory 18 18 Rate Blood Pressure 112/67 114/86 (mmHg) O2 Sat by Pulse 100 100 Oximetry 10/24/16 10/24/16 10/24/16 21:31 21:40 22:00 Temperature Pulse Rate 100 Respiratory 20 18 Rate Blood Pressure 113/82 (mmHg) O2 Sat by Pulse 100 100 Oximetry 10/24/16 10/24/16 10/24/16 22:27 22:30 22:45 Temperature Pulse Rate 103 103 104 Respiratory 19 16 19 Rate Blood Pressure 112/67 117/72 (mmHg) O2 Sat by Pulse 99 100 98 Oximetry 10/24/16 10/24/16 10/24/16 23:00 23:15 23:30 Temperature Pulse Rate 105 104 104 Respiratory 18 20 17 Rate Blood Pressure 108/72 116/77 119/65 (mmHg) O2 Sat by Pulse 93 96 97 Oximetry 10/24/16 10/25/16 10/25/16 23:45 00:00 00:15 Temperature Pulse Rate 102 101 104 Respiratory 19 17 22 Rate Blood Pressure 108/66 111/73 110/71 (mmHg) O2 Sat by Pulse 99 100 97 Oximetry 10/25/16 10/25/16 10/25/16 00:29 01:00 02:00 Temperature Pulse Rate 103 103 100 Respiratory 20 20 20 Rate Blood Pressure 109/62 102/64 (mmHg) O2 Sat by Pulse 97 98 99 Oximetry 10/25/16 10/25/16 10/25/16 02:06 02:08 03:00 Temperature Pulse Rate 102 Respiratory 20 17 20 Rate Blood Pressure 103/75 (mmHg) O2 Sat by Pulse 99 Oximetry 10/25/16 10/25/16 10/25/16 04:00 05:00 05:46 Temperature 99.1 F Pulse Rate 93 Respiratory 24 19 17 Rate Blood Pressure 109/72 (mmHg) O2 Sat by Pulse 100 Oximetry 10/25/16 10/25/16 10/25/16 06:00 06:58 07:00 Temperature Pulse Rate 85 92 94 Respiratory 18 21 20 Rate Blood Pressure 113/74 118/76 116/80 (mmHg) O2 Sat by Pulse 100 99 100 Oximetry 10/25/16 10/25/16 10/25/16 07:03 07:04 08:00 Temperature 98.1 F Pulse Rate 90 94 84 Respiratory 18 Rate Blood Pressure 118/80 116/80 119/75 (mmHg) O2 Sat by Pulse 99 Oximetry 10/25/16 10/25/16 10/25/16 09:00 10:00 10:24 Temperature Pulse Rate 86 82 81 Respiratory 8 15 18 Rate Blood Pressure 105/60 (mmHg) O2 Sat by Pulse 99 100 100 Oximetry 10/25/16 10/25/16 10/25/16 11:00 11:38 11:52 Temperature 98.3 F Pulse Rate 87 89 87 Respiratory 17 17 16 Rate Blood Pressure 109/65 (mmHg) O2 Sat by Pulse 99 100 100 Oximetry 10/25/16 10/25/16 12:06 12:07 Temperature Pulse Rate Respiratory 16 16 Rate Blood Pressure (mmHg) O2 Sat by Pulse Oximetry Oxygen Devices in Use Now: None Appearance: 41 yo f in nAd, aAOx3 Eyes: No Scleral Icterus, PERRLA Ears/Nose/Mouth/Throat: NL Teeth, Lips, Gums, Mucous Membranes Moist Neck: NL Appearance and Movements; NL JVP, Trachea Midline Respiratory: Symmetrical Chest Expansion and Respiratory Effort, Clear to Auscultation Cardiovascular: NL Sounds; No Murmurs; No JVD, RRR Abdominal: No Hepatosplenomegaly, - - mild diffuse abd tenderness, no rebound, no guarding, BS+ Lymphatic: No Cervical Adenopathy Extremities: No Edema, No Clubbing, Cyanosis Skin: No Rash or Ulcers, No Nodules or Sclerosis Neurological: Alert and Oriented x 3, NL Muscle Strength and Tone Result Diagrams: 10/25/16 04:09 10/25/16 04:09 Additional Lab and Data: Lab Results 10/24/16 Range/Units 17:37 POC Glucose (mg/dL) 212 H (74-106) mg/dL Microbiology and Other Data: Microbiology 10/24/16 23:35 Nasal Screen MRSA (PCR)(MORALES) - Final Nasal Mrsa Negative Assess/Plan/Problems-Billing Assessment: 41 yo F with h/o DM, dyslipidemia, post viral cardiomyopathy presented after 2 syncopal episodes while having N/V/D - Patient Problems (1) Syncope Comment: due to dehydration and hypotension secondary to N/V/D- most likely viral gastroenteritis hypotension -resolved, will lower IVF and stop at midnight. (2) HTN (hypertension) Comment: hypotension resolved. Holding Diovan due to hypotension and dehydration (3) DM2 (diabetes mellitus, type 2) Comment: cont ISS Holding Victosa and metformin (4) Acute renal failure Comment: due to dehydration, resolving (5) DVT prophylaxis Comment: heparin sc (6) Cardiomyopathy Comment: EF 45% on Echo, known post viral cardiomyopathy no arrythmia noted on telem. cont telem , transfer out of ICU Status and Disposition: inpatient, poss d/c in AM
[2016-10-26 06:06] LABS: Hematocrit 29 % (35-47); Hemoglobin 9.6 g/dl (12.0-16.0); Mean Corpuscular HGB Conc 33 g/dl (31-36); Mean Corpuscular Hemoglobin 29 pg (27-31); Mean Corpuscular Volume 87 fL (80-97); Mean Platelet Volume 9 um3 (7.4-10.4); Red Blood Count 3.34 10^6/ul (4.0-5.4); Red Cell Distribution Width 14 % (10.5-15); White Blood Count 6.4 10^3/ul (3.5-10.8)
[2016-10-26] MEDS: Heparin VIAL(*) 5000 UNITS/ML VIAL (FIVE THOUSAND) SUBCUT SCH (06:09)
[2016-10-26 06:26] LABS: Calcium 7.9 mg/dL (8.6-10.3); EGFR African American 84.8 (>60); Potassium 3.9 mmol/L (3.5-5.0)
[2016-10-26 07:39] VITALS: BP 134/82
[2016-10-26] MEDS: Atorvastatin* 10 MG TAB PO SCH (08:41)
[2016-10-26] MEDS: Insulin LISPRO* 1 UNITS UNIT SUBCUT SCH (08:41)
[2016-10-26] MEDS: DULoxetine DR CAP* 60 MG CAP.DR PO SCH (09:21)
--- NOTE | 2016-10-26 22:38 | DS ---
DISCHARGE SUMMARY: DATE OF ADMISSION: 10/24/16 DATE OF DISCHARGE: 10/26/16 PRIMARY CARE PROVIDER: Ruby Miller MD DISCHARGE DIAGNOSES: 1. Acute renal failure due to dehydration. 2. Nausea, vomiting and diarrhea most likely due to viral gastroenteritis. 3. Syncopal episodes due to dehydration and hypotension secondary to above- mentioned. SECONDARY DIAGNOSES: 1. History of viral cardiomyopathy. 2. History of diabetes. 3. History of hypertension. 4. Dyslipidemia. MEDICATIONS AT DISCHARGE: Unchanged from admission and include: 1. Atorvastatin 10 mg daily. 2. Cymbalta 60 mg daily. 3. Victoza 1.2 mg subcutaneously daily. 4. Zofran on a p.r.n. basis. 5. Diovan 320/25 one tablet daily. 6. Glucophage 1000 mg b.i.d. LABORATORY DATA: At discharge include white blood cell count of 6.4, hemoglobin of 9.6, hematocrit of 29, and platelets of 234. Sodium was 135, potassium 3.9, chloride 108, carbon dioxide 23, BUN 15, creatinine 0.94. The patient's creatinine at admission was noted to be 1.7. The patient's white blood cell count at admission was 13.8. The patient also had transthoracic echocardiogram on 10/24/16, which showed EF of 40% to 45% with global hypokinesis of the left ventricle with minor regional variation with dyskinetic septum. There was evidence of an atrial septal aneurysm. There was mild mitral valve regurgitation. There was no prior echocardiogram available for comparison. CT angiogram of the chest obtained on 10/24/16, impression: "No pulmonary arterial filling defects to suggest pulmonary embolism. Two patchy ground glass nodularity of the left lower lung and right upper lobe. While this may be infectious and inflammatory in nature, the imaging appearance is indeterminate. Recommendation for followup and management of an incidentally detected pulmonary nodule greater than 8 mm in size and the patient without the history of malignancy include followup at 3, [address] versus dynamic contrast enhanced CT, PET CT and/or a biopsy. The nodular opacification with the left lower lobe was measuring 1.2 cm in size." HOSPITALIZATION COURSE: Francisca Ledbetter is a 41-year-old female with history of viral cardiomyopathy in the past and CHF due to that in the past, who also is a diabetic. She is a teacher at [employer]. She stated that in the morning on the day of admission, she did not have time to eat and later on she developed , nausea, vomiting, and diarrhea almost at the same time when she felt nauseated and felt like having a bowel moment, she originally passed out. She lost consciousness, but then she came about within seconds, stated that she needed to go to the bathroom. The second syncopal episode occurred on the toilet seat when she had diarrhea and nausea. When she presented to the ED, her systolic pressures were in the 80s. She had acute renal failure with creatinine of 1.7 and lactic acid elevation of 4. I suspect the lactic acid elevation of 4 was due to combination of hypoperfusion due to hypotension, syncope as well as acute renal failure . The patient was placed on intravenous fluids and her creatinine recovered to 0.[address] angiogram of the chest obtained initially showed no marked abnormalities apart from lung nodules of 1.2 cm for which a followup CT was recommended as above-mentioned in 3, 9 and 24 months. The patient's hemoglobin A1c noted to be 11.6 and she is recommended to follow up with her primary care provider in regards of further management of her diabetes. Otherwise, her medications at discharge are unchanged. Please also note the patient had a bout of diverticulitis in July 2016. She still feels that she is not fully recovered and occasionally has abdominal cramping after the antibiotics that she took in July. She also noted that during her diverticulitis episode, she had black stools and bloody stools. At this point of discharge, the patient is recommended to follow up with map compiler for possibility of colonoscopy. The current episode of nausea, vomiting and diarrhea is most likely due to viral gastroenteritis. She had mild lower abdominal tenderness bilaterally on evaluation, which resolved by the time of discharge. PHYSICAL EXAMINATION AT THE TIME OF DISCHARGE: Blood pressure of 134/82, heart rate of 82 and regular, respiratory rate 16, oxygen saturation 100% on room air , temperature of 98.2. General: The patient is a very pleasant 41-year-old female who is in no acute distress. Alert, awake and oriented x3. HEENT: Head: Atraumatic, normocephalic. Eyes: Pupils equal and reactive to light and accommodation. Oropharynx clear. Mucosa moist. Neck: Supple, no JVD and no bruits bilaterally. Cardiovascular: Regular rate and rhythm. No murmurs. Respiratory: Clear to auscultation bilaterally. Abdomen: Soft and nontender. Bowel sounds present in all 4 quadrants. Extremities: There is no edema. Pulses 2+ bilaterally. No clubbing or cyanosis. Neuro Evaluation: Speech clear. Cranial nerves II through XII grossly intact. Motor strength is 5/5 bilaterally. Please note that this is a short summary of the patient's hospital stay. Please refer to further medical records for details. TIME SPENT: Approximately 40 minutes were spent on the patient's discharge. CC: Ruby Miller MD* [id number] #: [id number]
== END 2016-10-26 11:14 | disposition home or self-care (01) ==
LOC: ED 17:19 → ICU 20:13 → INTOOBSV 20:13 → MEDTELE 10-25 09:46
PROVIDERS: ADMIT Hospitalist; ATTEND Internal Medicine
DX: N17.9 Acute kidney failure, unspecified (principal); R55 Syncope and collapse; E86.0 Dehydration; R11.2 Nausea with vomiting, unspecified; R19.7 Diarrhea, unspecified; I95.9 Hypotension, unspecified; E83.42 Hypomagnesemia; E87.2 Acidosis; I11.0 Hypertensive heart disease with heart failure; I50.9 Heart failure, unspecified; I42.9 Cardiomyopathy, unspecified; E78.5 Hyperlipidemia, unspecified; D25.9 Leiomyoma of uterus, unspecified; Z79.899 Other long term (current) drug therapy; Z79.84 Long term (current) use of oral hypoglycemic drugs; Z88.8 Allergy status to other drugs, medicaments and biological substances; Z32.02 Encounter for pregnancy test, result negative
CPT/HCPCS: 36415; 71010; 71275; 80048; 80053; 80178; 81003; 81015; 82550; 82553; 83036; 83605; 83735; 84443; 84484; 84702; 85025; 85610; 85730; 86140; 87086; 87641; 93005; 93306; 94760; 96361; 96374; 96375; 99284; A9270-GY; G0378; J2405; J3475; Q9967

== ENCOUNTER 2018-01-13 18:57 | Emergency (ER) | payer OTHER ==
[2018-01-13] MEDS ORDERED: NS 0.9% 1000 ML* 1,000 ML IV ONE (19:35)
[2018-01-13] MEDS ORDERED: Metoclopramide IV* 5 MG/ML 2 ML VIAL IV SLOW PU ONE (19:35)
[2018-01-13] MEDS ORDERED: Ketorolac INJ* 30 MG/ML 1 ML VIAL IV PUSH ONE (19:36)
--- NOTE | 2018-01-13 20:25 | ED ---
GI/ HPI - HPI Summary HPI Summary: 42F presents with abdominal pain for the past couple days. She also admits to nausea and vomiting. She states that she had her period two weeks ago and then she started bleeding today. Unsure if . No pain with urination. No fevers. No flank pain. No abnormal vaginal discharge and diarrhea constipation. No previous belly surgeries. Has a history of fibroids. States his never had this pain this severe before. Did not take anything for pain. Has not been able to keep anything down. she is diabetic. - History of Current Complaint Chief Complaint: EDAbdPain Time Seen by Provider: 01/13/18 19:24 Stated Complaint: ABD PAIN Pain Intensity: 5 - Additional Pertinent History Primary Care Physician: JOSSIE - Allergy/Home Medications Allergies/Adverse Reactions: Allergies Allergy/AdvReac Type Severity Reaction Status Date / Time MS Lisinopril [Lisinopril] Allergy See Comment Verified 01/13/18 19:04 all "prils" Allergy See Comment Uncoded 01/13/18 19:04 PMH/Surg Hx/FS Hx/Imm Hx Endocrine/Hematology History: Reports: Hx Diabetes - INSULIN DEPENDANT Cardiovascular History: Reports: Hx Congestive Heart Failure, Hx Hypertension Denies: Hx Pacemaker/ICD Respiratory History: Denies: Hx Asthma History: Denies: Hx Renal Disease Sensory History: Reports: Hx Contacts or Glasses Denies: Hx Hearing Aid Opthamlomology History: Reports: Hx Contacts or Glasses Psychiatric History: Reports: Hx Depression Denies: Hx Panic Disorder Infectious Disease History: No Infectious Disease History: Denies: Traveled Outside the [place] in Last 30 Days - Family History Known Family History: Positive: Diabetes - Social History Alcohol Use: None Hx Substance Use: No Substance Use Type: Reports: None Hx Tobacco Use: No Smoking Status (MU): Never Smoked Tobacco Review of Systems Negative: Fever Negative: Chest Pain Negative: Shortness Of Breath Positive: Abdominal Pain, Vomiting, Nausea. Negative: Diarrhea Negative: dysuria All Other Systems Reviewed And Are Negative: Yes Physical Exam Triage Information Reviewed: Yes Vital Signs On Initial Exam: Initial Vitals Temp Pulse Resp BP Pulse Ox 97.6 F 84 22 118/78 100 01/13/18 18:59 01/13/18 18:59 01/13/18 18:59 01/13/18 18:59 01/13/18 18:59 Vital Signs Reviewed: Yes Appearance: Positive: Well-Appearing Skin: Positive: Warm, Dry Head/Face: Positive: Normal Head/Face Inspection Eyes: Positive: Normal, Conjunctiva Clear ENT: Positive: Pharynx normal Respiratory/Lung Sounds: Positive: Clear to Auscultation, Breath Sounds Present Cardiovascular: Positive: Normal, RRR Abdomen Description: Positive: Soft, Other: - mild diffuse tenderness greatest pelvic area Bowel Sounds: Positive: Present Pelvic Exam: Positive: External Exam Normal, Speculum Exam Normal, Bimanual Exam Normal, No Cerv. Motion Tender, Blood Musculoskeletal: Positive: Normal Neurological: Positive: Normal Psychiatric: Positive: Normal Diagnostics - Vital Signs Vital Signs Temp Pulse Resp BP Pulse Ox 01/13/18 18:59 97.6 F 84 22 118/78 100 - Laboratory Result Diagrams: 01/13/18 20:39 01/13/18 20:39 Lab Statement: Any lab studies that have been ordered have been reviewed, and results considered in the medical decision making process. - Ultrasound No standard instances Ultrasound Interpretation: No Acute Changes Ultrasound Interpretation Completed By: Radiologist - IMPRESSION: 1. FIBROID UTERUS. 2. THE ENDOMETRIUM IS NOT WELL VISUALIZED. 3. NO SONOGRAPHIC FEATURES OF TORSION. PLEASE NOTE THAT PARTIAL OR INTERMITTENT TORSION MAY BE SONOGRAPHICALLY NORMAL. Re-Evaluation - Re-Evaluation First Eval Re-Evaluation Time: 22:47 Change: Unchanged Comment: patient sleeping in room, abd pain still diffuse, unable to get IV in patient Second Eval Re-Evaluation Time: 23:34 Change: Improved Comment: feeling better, will discharge with zofran and reglan GIGU Course/Dx - Course Course Of Treatment: 42F presents with abdominal pain for the past couple days. She also admits to nausea and vomiting. She states that she had her period two weeks ago and then she started bleeding today. Unsure if . No pain with urination. No fevers. No flank pain. No abnormal vaginal discharge and diarrhea constipation. No previous belly surgeries. Has a history of fibroids. States his never had this pain this severe before. Did not take anything for pain. Has not been able to keep anything down. On exam diffusely tender. Greatest in the suprapubic region. wbc normal. crp normal. pelvic u/s shows fibroids. pelvic exam no CMT. normal on period. unable to get IV so gave oral meds. urine likely contaminent as has period will wait for culture. will give reglan for nausea. patient understand and agrees with plan. - Diagnoses Differential Diagnoses - Female: Gastroenteritis (Viral), Gastroenteritis ( Bacterial), Urinary Tract Infection Provider Diagnoses: Abdominal pain, Vomiting Discharge - Sign-Out/Discharge Documenting (check all that apply): Discharge/Admit/Transfer - Discharge Plan Condition: Good Disposition: HOME Prescriptions: Metoclopramide TAB* [Reglan TAB*] 5 mg PO Q6H PRN #12 tab PRN Reason: Nausea Patient Education Materials: Acute Nausea and Vomiting (ED) Referrals: Mohan Monroy MD [Primary Care Provider] - Additional Instructions: Can take Zofran or reglan every 6 hours as needed for nausea Drink small amounts of fluid as tolerated When able to eat follow BRAT diet: Bananas, rice, applesauce, toast Take ibuprofen or Tylenol for pain as needed every 6 hours Follow up with primary within 5 days Return to ED if develop fever that does not respond to Tylenol or ibuprofen, severe abdominal pain, or any new or worsening symptoms - Billing Disposition and Condition Condition: GOOD Disposition: Home
[2018-01-13] MEDS ORDERED: Morphine VIAL* 4 MG/ML VIAL (1 ml vial) IV ONE (20:50)
[2018-01-13 20:52] LABS: ABS Basophils 0 10^3/ul (0-0.2); ABS Eosinophils 0 10^3/ul (0-0.6); ABS Lymphocytes 1.5 10^3/ul (1.0-4.8); ABS Monocytes 0.3 10^3/ul (0-0.8); ABS Neutrophils 6.5 10^3/ul (1.5-7.7); ABS Nucleated RBC 0 10^3/ul; Eosinophil % 0.2 % (0-6); Hematocrit 28 % (35-47); Hemoglobin 9.2 g/dl (12.0-16.0); Mean Corpuscular HGB Conc 33 g/dl (31-36); Mean Corpuscular Hemoglobin 26 pg (27-31); Mean Corpuscular Volume 78 fL (80-97); Mean Platelet Volume 7.5 um3 (7.4-10.4); Nucleated Red Blood Cells % 0; Platelet Count 404 10^3/ul (150-450); Red Blood Count 3.63 10^6/ul (4.00-5.40); Red Cell Distribution Width 15 % (10.5-15); White Blood Count 8.3 10^3/ul (3.5-10.8)
[2018-01-13 21:12] LABS: EGFR Non-African American 57.1 (>60)
--- NOTE | 2018-01-13 21:38 | RAD ---
HISTORY: lower abdominal pain COMPARISONS: MRI dated April 05, 2012 TECHNIQUE: Multiple transverse and longitudinal ultrasound images were obtained of the pelvis using grayscale, color Doppler, and spectral Doppler imaging using the transabdominal transducer. FINDINGS: UTERUS: The uterus measures 10.4 x 4.9 x 4.7 cm. Again noted are multiple uterine fibroids. This includes submucosal fibroids. The largest fibroid measures approximately 3.8 cm in maximum dimension. Accounting for differences in technique, this is similar to April 05, 2017 examination. ENDOMETRIUM: The endometrium is not well visualized. CUL-DE-SAC: There is no free fluid within the cul-de-sac. RIGHT OVARY: The right ovary measures 3.4 x 2.1 x 3.4 cm. Normal arterial and venous waveforms are identifiable within the ovary on spectral Doppler imaging. LEFT OVARY: The left ovary measures 4.1 x 1.8 x 4.1 cm. Normal arterial and venous waveforms are identifiable within the ovary on spectral Doppler imaging. BLADDER: The visualized bladder is unremarkable. OTHER: None IMPRESSION: 1. FIBROID UTERUS. 2. THE ENDOMETRIUM IS NOT WELL VISUALIZED. 3. NO SONOGRAPHIC FEATURES OF TORSION. PLEASE NOTE THAT PARTIAL OR INTERMITTENT TORSION MAY BE SONOGRAPHICALLY NORMAL.
[2018-01-13] MEDS ORDERED: Ketorolac INJ* 30 MG/ML 1 ML VIAL IM ONE (22:26)
[2018-01-13] MEDS ORDERED: Ondansetron ODT TAB* 4 MG PO ONE (22:26)
[2018-01-13] MEDS ORDERED: Metoclopramide TAB* 10 MG PO ONE (23:01)
[2018-01-13 23:13] LABS: Urine Appearance Cloudy; Urine Blood 3+ (Negative); Urine Color Yellow; Urine Ketones 1+ (Negative); Urine Protein 2+(100 mg/dL) (Negative); Urine Red Blood Cell 3+(>10/hpf) (Absent); Urine Urobilinogen Negative (Negative); Urine White Blood Cell 1+(6-10/hpf) (Absent)
[2018-01-13] MEDS ORDERED: O ndansetron ODT 4MG 2TAB PRPK 4 MG PAK PO ONE (23:31)
[2018-01-13 23:50] VITALS: BP 176/105
--- NOTE | 2018-01-17 15:12 | PN ---
Progress Note - Progress Note Date of Service: 01/13/18 Note: Pt. seen in ER 01/13 for abd. pain. Urine culture today is growing >100,000 GBS. Attempted to call pt. today at 1500, message left. Will send antibx to pharmacy and send certified letter.
== END 2018-01-13 23:50 | disposition home or self-care (01) ==
LOC: ED 18:57
DX: R10.9 Unspecified abdominal pain (principal); R11.2 Nausea with vomiting, unspecified; D25.0 Submucous leiomyoma of uterus; E11.9 Type 2 diabetes mellitus without complications; Z79.4 Long term (current) use of insulin; Z88.8 Allergy status to other drugs, medicaments and biological substances
CPT/HCPCS: 36415; 76856; 80053; 81003; 81015; 83690; 84702; 85025; 86141; 87077; 87086; 87480; 87491; 87510; 87591; 87661; 96361; 96372; 96374; 96375; 99284; A9270-GY; J1885; J2270; J2765

== ENCOUNTER 2018-09-25 13:30 | Emergency (ER) | payer OTHER ==
--- OUTSIDE RECORDS SUMMARY | 2018-09-25 13:51 | XMS REPORT | Continuity of Care Document ---
:1975 External Reference #:[id number] Author Name Marsha Padilla Care Team Providers Name Role Phone Patient's Choice Primary Care Physician Unavailable Payers Type Date Identification Numbers Payment Provider Subscriber Policy Number: [id number] [employer] Francisca Sellers PayID: [id number] [address] [place] [address] Advance Directives Description No Information Available Problems Date Description Provider Status Onset: 05/23/2016 Depressive disorder Ruby Miller M.D. Active Onset: 05/23/2016 History of cardiomyopathy Ruby Miller M.D. Active Note: viral in 2006 now with atrial septal aneurym , EF 40-45 % Onset: 05/23/2016 Dyslipidemia Ruby Miller M.D. Active Note: ass with DM Onset: 05/23/2016 Essential hypertension Ruby Miller M.D. Active Onset: 05/23/2016 Obesity Ruby Miller M.D. Active Onset: 06/06/2016 Polycystic ovaries Ruby Miller M.D. Active Note: PCOS per old records Onset: 06/06/2016 History of noncompliance with Ruby Miller M.D. Active medication regimen Onset: 07/06/2016 Microproteinuria Ruby Miller M.D. Active Note: persistant due to uncontrolled diabetes /intermittent compliance with meds in past Onset: 08/30/2016 Diverticulosis of sigmoid colon Ruby Miller M.D. 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 Active Onset: Submucous leiomyoma of uterus Active Onset: 03/21/2017 Excessive and frequent menstruation Bruce Lopez M.D. Active Onset: 03/21/2017 Nausea and vomiting Bruce Lopez M.D. 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, [employer] ETOH Use Denies alcohol use Tobacco Use Start: Unknown Patient has never smoked Recreational Drug Use Denies Drug Use Smoking Status Reviewed: 08/29/18 Patient has never smoked Exercise Type/Frequency Exercises regularly Twice per week with a senior trainer Allergies, Adverse Reactions, Alerts Date Description Reaction Status Severity Comments 05/23/2016 Lisinopril angioedema Active Moderate Medications Medication Date Status Form Strength Qnty SIG Indications Ordering Provider Losartan 08/16 Active Tablets 50-12.5mg 30tab 1 tab po E11.22 Jayla Potassium/Hydrochlor s q daily Sotero collins MD Slow-Mag 08/16 Active Tablets 71.5-119m 60tab 2 tabs po E83.[address] g s q daily MD Sotero Metoprolol Succinate 08/14 Active Tablets 25mg 90tab 1 by Durga ER /2018 ER 24HR s mouth F. every day Jae Fung Xultophy 06/11 Active Solution 100-3.6Un 15ml using 40 [place] Pen-Injec it-mg/ML units MD Tomas t daily in the evening Pen [place] 06/11 Active Misc 32G X 4 30uni use 1 pen [place] mm ts needle 4 MD Tomas times/day with insulin Pioglitazone 06/11 Active Tablets 15-500mg 30tab take one [place] HCL-Metformin HCL s tablet MD Tomas once daily Atorvastatin Calcium 04/16 Active Tablets 20mg 90tab take 20mg E11.8 [place] s daily MD Tomas Accu-Check Sara 07/06 Active 100un test 3 E11.65 Ruby Test Strips its times Miller, daily or M.D. as needed dx: e11.65 Accucheck Lancets 07/06 Active 100un as needed E11.65 Ruby (Soft-Clix) its Paul, M.D. Accu-Check Glucose 07/06 Active Device 1unit check 3 E11.65 Ruby Monitor /2015 s -4 times Miller, a day M.D. e11.65 BD Pen 05/23 Active Misc 31G X 8 100un use with E11.65 Ruby Needle/Short/Ultrafi mm its victoza Miller, ne/31G X 5/16" daily M.D. Dx:E11.65 Duloxetine HCL Active Caps DR 60mg 90cap 1 by Ruby /0000 Part s mouth Miller, every day M.D. Desloratadine Active Tablets 5mg 1 by Unknown /0000 mouth every day Shane-Sequels Active Tablets 65-25mg 1 tab by Unknown /0000 ER mouth daily Xyzal Allergy 24HR Active Tablets 5mg Unknown /0000 Bupropion HCL ER 00 Active Tablets 100mg 1 by Unknown (SR) /0000 ER 12HR mouth every day Amlodipine Besylate 08/14 Hx Tablets 5mg 90tab 1 by I1 s mouth F. - every day Majose de jesus 08/16 M.D. Amlodipine Besylate 07/16 Hx Tablets 10mg 90tab 1 by I10 Nay S. s mouth Mitchell, - every day N.P. 08/14 Amlodipine Besylate 07/04 Hx Tablets 5mg 30tab 5mg once Nay S. s daily Mitchell, - N.P. 07/16 Hydrochlorothiazide 05/30 Hx Tablets 25mg 180ta 1 tab by I1 bs mouth F. - every day Majose de jesus, 08/16 M.D. Trulicity 04/24 Hx Solution 0.75mg/0. 2ml start [place] Pen-Injec 5ML 0.75mg MD Rubén Marin once 06/11 for 4 weeks Trulicity 04/24 Hx Solution 1.5mg/0.5 2ml Second Pen-Injec ML Month MD Rubén Marin increase 06/11 to 1.5mg /2017 weekly after 4 weeks V-Go 30 04/16 Hx Kit 30uni use one E11.8 [place] ts device MD Tomas - daily 04/23 Apidra 04/16 Hx Solution 100Unit/M 20ml use with E11.8 [place] L V-Go MD Tomas - insulin 04/23 pump Freestyle 04/16 Hx Device 1unit use every E11.8 [place] Rao/[place]/Flash s 8 hours MD Tomas Monitoring System - with 04/23 sensor Freestyle 04/[address] E11.8 [place] Rao/Sensor/Flash s device on MD Tomas Monitoring System - skin 04/23 every days; use with reader every 8 hours Irbesartan-Hydrochlo 03/19 Hx Tablets 300-12.5m 90tab 1 tab by Durga talbert g s mouth F. - every day Mauser, 03/19 M.D. Irbesartan-Hydrochlo 03/19 Hx Tablets 150-12.5m 180ta 2 by Durga talbert g bs mouth F. - every Mauser, 07/10 day(pt is M.D. not taking at the moment) Valsartan-Hydrochlor 02/06 Hx Tablets 320-25mg 90tab 1 by Durga othiazide s mouth F. - every day Mauser, 03/19 M.D. Valsartan 09/10 Hx Tablets 320mg 90tab 1 by Durga s mouth F. - every day Mauser, 02/06 M.D. Chlorthalidone 09/10 Hx Tablets 25mg 30tab 1 by I42.9 Durga s mouth F. - every day Mauser, 02/06 as M.D. needed. Metformin HCL 02/22 Hx Tablets 500mg 1 by E11.65 mouth Miller, - daily M.D. 06/11 (per pt current dose) pt is taking 1000mg (unable to change info ) Metoprolol Succinate 02/22 Hx Tablets 25mg 90tab 1 by I42.9 Durga ER 24HR s mouth F. - every Mauser, 04/15 night M.D. Atorvastatin Calcium 09/25 Hx Tablets 10mg 90tab 1 by s mouth Miller, - every day M.D. 04/15 Ciprofloxacin HCL 08/30 Hx Tablets 500mg 6tabs 1 tab by K57.92 mouth Miller, - twice a M.D. Metformin HCL 07/06 Hx Tablets 1000mg 180ta 1 tab E11.65 bs twice a Miller, - day M.D. 02/22 Victoza Hx Solution 18mg/3ML inject Unknown /0000 Pen-Injec 1.8 mg - t under the 05/23 daily Atorvastatin Calcium Hx Tablets 10mg 30tab 1 by Ruby /0000 s mouth Miller, - every day M.D. 09/25 Metformin HCL Hx Tablets 500mg 1 by Unknown /0000 mouth - once a Victoza Hx Solution 18mg/3ML 27ml inject E11.65 Ruby /0000 Pen-Injec 1.2 mg Paul, - t daily in M.D. 04/16 morning Ciprofloxacin HCL Hx Tablets 500mg Take 1 Unknown /0000 Tablet By - Mouth 09/25 Twice Day Ondansetron Hx Tablets 4mg Dissolve Unknown /0000 Dispers 1 Tablet - In Mouth 07/10 Every Hours as Needed For Nausea Metronidazole Hx Tablets 500mg 21tab 1 ta 3 Ruby /0000 s times a Miller, - day M.D. 09/25 [place] Fe 08/18 Hx Tablets 1-20mg-mc 1 po qd Unknown /0000 g - 09/25 [place]ovi Fe 08/18 Hx Tablets 1-20mg-mc Take 1 Unknown /0000 g Tablet By - Mouth 03/20 Every Day /2016 Metronidazole Hx Tablets 500mg one Unknown /0000 tablet by - mouth 3 03/20 daily for 7 days Lantus Martinezostar Hx Solution 100Unit/M 40 u q pm Unknown /0000 Pen-Injec L - t 04/16 Ibuprofen Hx Tablets 600mg three Unknown /0000 times a - day prn 08/14 Valsartan-Hydrochlor Hx Tablets 320-25mg 90tab take 1 Ruby othiazide /0000 s tablet by Miller, - mouth M.D. 09/10 Jardiance 00 Hx Tablets 10mg 1 by Unknown /0000 mouth - every 02/05 Cryselle-28 Hx Tablets 0.3-30mg- 1 by Unknown /0000 mcg mouth - every day 07/03 tablets only Valsartan-Hydrochlor Hx Tablets 320-25mg 1 by Unknown othiazide /0000 mouth - every day 04/16 Jardiance 0000 Hx Tablets 10mg 1 by Unknown /0000 mouth - daily in 04/23 morning(s topped taking) Metoclopramide HCL 00 Hx Tablets 10mg 1 tablet Unknown /0000 PO every - 6 hs prn 07/10 Jardiance 0000 Hx Tablets 10mg 1 by Unknown /0000 mouth - daily in 06/08 morning Levocetirizine Hx Tablets 5mg 1 every Unknown Dihydrochloride /0000 day as - needed 08/14 Immunizations CPT Code Status Date Vaccine Lot # [id number] Given 05/23/2016 Influenza Virus Vaccine, Quadrivalent, Split, [id number] Preservative Free Vital Signs Date Vital Result Comment 08/29/2018 9:18am Height 61 inches 5'1" Weight 150.00 lb Heart Rate 94 /min BP Systolic 121 mmHg BP Diastolic 77 mmHg O2 % BldC Oximetry 98 % BMI (Body Mass Index) 28.3 kg/m2 Last Menstrual Period [id number] 08/14/2018 2:20pm Height 61 inches 5'1" Weight 150.38 lb Heart Rate 88 /min BP Systolic Sitting 128 mmHg BP Diastolic Sitting 82 mmHg BMI (Body Mass Index) 28.4 kg/m2 Ejection Fraction 55-60% echo 10/17/17 08/06/2018 2:51pm Height 61 inches 5'1" Weight 148.00 lb w/o shoes Heart Rate 106 /min BP Systolic Sitting 140 mmHg BP Diastolic Sitting 91 mmHg BMI (Body Mass Index) 28.0 kg/m2 07/16/2018 2:30pm Height 61 inches 5'1" Heart Rate 88 /min BP Systolic 174 mmHg Ra, reg BP Diastolic 94 mmHg Ra, reg BP Systolic Sitting 182 mmHg Ra, reg BP Diastolic Sitting 96 mmHg Ra, reg BP Systolic Recheck 176 mmHg LA, reg BP Diastolic Recheck 96 mmHg LA, reg 07/11/2018 3:14pm Height 61 inches 5'1" Weight 149.50 lb without shoes Heart Rate 104 /min BP Systolic 164 mmHg Rue BP Diastolic 100 mmHg Rue BMI (Body Mass Index) 28.2 kg/m2 Ejection Fraction 55-60% echocardiogram 10/17/17 07/04/2018 9:22am Height 61 inches 5'1" Weight 152.00 lb w/o shoes Heart Rate 106 /min BP Systolic 181 mmHg BP Diastolic 100 mmHg BP Systolic Lying Down 184 mmHg at end of visit BP Diastolic Lying Down 102 mmHg at end of visit BMI (Body Mass Index) 28.7 kg/m2 06/11/2018 1:28pm Height 61 inches 5'1" Weight 153.00 lb w/o shoes Heart Rate 121 /min BP Systolic Sitting 161 mmHg BP Diastolic Sitting 102 mmHg BMI (Body Mass Index) 28.9 kg/m2 05/30/2018 8:37am Height 61 inches 5'1" Weight 149.00 lb w/o shoes BP Systolic Sitting 140 mmHg Lue reg cuff BP Diastolic Sitting 85 mmHg Lue reg cuff BP Systolic Standing 135 mmHg Lue reg cuff BP Diastolic Standing 83 mmHg Lue reg cuff Respiratory Rate 18 /min BMI (Body Mass Index) 28.2 kg/m2 Ejection Fraction 55-60% 10/17/2017 04/16/2018 3:14pm Height 61 inches 5'1" Weight 157.00 lb w/o shoes Heart Rate 103 /min BP Systolic Sitting 172 mmHg BP Diastolic Sitting 91 mmHg BMI (Body Mass Index) 29.7 kg/m2 02/06/2018 2:41pm Height 61 inches 5'1" Weight 160.00 lb Heart Rate 68 /min BP Systolic Sitting 146 mmHg BP Diastolic Sitting 90 mmHg Respiratory Rate 16 /min BMI (Body Mass Index) 30.2 kg/m2 Ejection Fraction 55-60% 10/17/2017 echo 09/10/2017 3:48pm Height 61 inches 5'1" Weight 162.00 lb no shoes Heart Rate 100 /min BP Systolic 140 mmHg L/Arm Reg Cuff BP Diastolic 90 mmHg L/Arm Reg Cuff BP Systolic Sitting 138 mmHg la repeat sitting BP Diastolic Sitting 86 mmHg la repeat sitting BMI (Body Mass Index) 30.6 kg/m2 Ejection Fraction 50-55% Echocardiogram 03/20/2017 04/19/2017 10:05am Height 61 inches 5'1" Weight 161.00 lb with shoes Heart Rate 88 /min BP Systolic Sitting 120 mmHg Rue reg cuff BP Diastolic Sitting 88 mmHg Rue reg cuff Respiratory Rate 16 /min BMI (Body Mass Index) 30.4 kg/m2 Ejection Fraction 50-55% 03/20/2017-echo 03/21/2017 1:35pm Height 61 inches 5'1" Weight 161.25 lb w/o shoes Heart Rate 102 /min BP Systolic Sitting 130 mmHg Ra reg cuff BP Diastolic Sitting 86 mmHg Ra reg cuff BMI (Body Mass Index) 30.5 kg/m2 02/22/2017 1:14pm Height 61 inches 5'1" Weight 158.75 lb with shoes Heart Rate 90 /min BP Systolic Sitting 124 mmHg LA reg cuff BP Diastolic Sitting 84 mmHg LA reg cuff BMI (Body Mass Index) 30.0 kg/m2 Ejection Fraction 40% - 45% echo 10/25/16 09/25/2016 10:35am Weight 158.00 lb Heart Rate 92 /min BP Systolic Sitting 142 mmHg BP Diastolic Sitting 82 mmHg Respiratory Rate 15 /min Body Temperature 98.3 F O2 % BldC Oximetry 98 % 08/30/2016 10:38am Weight 156.00 lb Heart Rate 78 /min BP Systolic Sitting 114 mmHg BP Diastolic Sitting 60 mmHg Respiratory Rate 15 /min Body Temperature 98.0 F O2 % BldC Oximetry 98 % 08/23/2016 10:10am Heart Rate 76 /min BP Systolic Sitting 118 mmHg BP Diastolic Sitting 70 mmHg Respiratory Rate 15 /min Body Temperature 99.7 F O2 % BldC Oximetry 98 % 07/06/2016 8:39am Weight 164.00 lb Heart Rate 81 /min BP Systolic Sitting 148 mmHg BP Diastolic Sitting 108 mmHg Body Temperature 98.0 F O2 % BldC Oximetry 98 % 05/23/2016 2:13pm Height 61 inches 5'1" Weight 162.00 lb Heart Rate 96 /min BP Systolic Sitting 138 mmHg BP Diastolic Sitting 88 mmHg Body Temperature 98.4 F O2 % BldC Oximetry 96 % BMI (Body Mass Index) 30.6 kg/m2 Results Test Date Facility Test Result H/L Range Note CBC Auto Diff 08/28/2018 [facility] White Blood 9.6 10^3/uL N 3.5-10.[address] [place] [address] [phone] Red Blood Count 2.95 10^6/uL Low 4.00-5.40 Hemoglobin 7.8 g/dL Low 12.0-16.0 Hematocrit 24 % Low 35-47 Mean Corpuscular Volume 83 fL N 80-97 Mean Corpuscular Hemoglobin 27 pg N 27-31 Mean Corpuscular HGB Conc 32 g/dL N 31-36 Red Cell Distribution Width 16 % High 10.5-15 Platelet Count 308 10^3/uL N 150-450 1 Mean Platelet Volume 8.8 fL N 7.4-10.4 Abs Neutrophils 6.9 10^3/uL N 1.5-7.7 Abs Lymphocytes 2.0 10^3/uL N 1.0-4.8 Abs Monocytes 0.5 10^3/uL N 0-0.8 Abs Eosinophils 0.1 10^3/uL N 0-0.6 Abs Basophils 0.1 10^3/uL N 0-0.2 Abs Nucleated RBC 0 10^3/uL Granulocyte % 72.4 % Lymphocyte % 21.0 % Monocyte % 5.4 % Eosinophil % 0.6 % Basophil % 0.6 % Nucleated Red Blood Cells % 0 Laboratory test finding 08/28/2018 [facility] Ferritin <pending > [address] [place] [address] [phone] Transferrin <pending> Inr/Protime 08/28/2018 [facility] Inr 0.88 N 0.77-1.[address] [place] [address] [phone] Laboratory test 08/28/2018 [facility] Anti Double <pending> finding [address] [place] [address] AB [phone] Histone Antibody <pending> Neutrophil Cytoplasmic AB <pending> Angiotensin Converting Enzyme <pending> Calcium <pending> Anti Nuclear Antibody <pending> Laboratory test 08/28/2018 [facility] Calcium 9.1 mg/dL N 8.6- 10.[address] [place] [address] [phone] Iron & Iron Binding 08/28/2018 [facility] Iron 38 g/dL Low 50-[address] [place], [place] [id number] [phone] Unsaturated Iron Binding < 441 g/dL Total Iron Binding Capacity 456 g/dL High 250-450 Transferrin 326 mg/dL N 203-362 % Iron Saturation 8 % Low 15-55 Laboratory test 08/28/2018 [facility] Ferritin 5.5 ng/mL Low 11-[address] [place], [place] [id number] [phone] Laboratory test 08/26/2018 [facility] Surgical SEE RESULT [address] Pathology BELOW [place], [place] [id number] [phone] Platelet Count 08/26/2018 [facility] Platelet Count 380 10^3/uL N [address] [place] [address] [phone] Mean Platelet Volume 7.6 fL N 7.4-10.4 Inr/Protime 08/26/2018 [facility] Inr 0.84 N 0.77-1.02 DR[address] [place], [place] [id number] [phone] Laboratory test 08/26/2018 [facility] Partial 27.0 N 26.0- 36.[address] [place] [address] PTT [phone] Xray 08/26/2018 [facility] US Renal <pending> DRIVE Complete [place], [place] [address]80 [phone] Creatinine 24HR 08/14/2018 [facility] Urine [address] [place] [address] Time [phone] Urine Total Volume 1250 mL Urine Creatinine Concentration 104.83 mg/dL Urine Creatinine/24 Hour 1310.37 mg/24Hr N 600-1800 Total Protein 08/14/2018 [facility] Urine TP 359 mg/dL 24HR Urine [address] [place] [address] [phone] Urine Total Protein/24HR 4487 mg/24Hr High 0-165 Laboratory test 08/06/2018 [facility] Glucose Random 289 finding Basic Metabolic 07/04/2018 [facility] Sodium 139 mmol/L N 135- [address] [place] [address] [phone] Potassium 3.7 mmol/L N 3.5-5.0 Chloride 105 mmol/L N 101-111 Co2 Carbon Dioxide 30 mmol/L N 22-32 Anion Gap 4 mmol/L N 2-11 Glucose 90 mg/dL N 70-100 Blood Urea Nitrogen 18 mg/dL N 6-24 Creatinine 1.26 mg/dL High 0.51-0.95 BUN/Creatinine Ratio 14.3 N 8-20 Calcium 9.4 mg/dL N 8.6-10.3 Egfr Non- 46.8 >60 Egfr 56.6 >60 3 Laboratory test 07/04/2018 [facility] Magnesium 1.7 mg/dL Low 1.9-2.[address] [place] [address] [phone] CBC Auto Diff 07/04/2018 [facility] White Blood 7.3 N 3.5- 10.[address] Count 10^3/[place] [address] [phone] Red Blood Count 3.78 10^6/uL Low 4.00-5.40 Hemoglobin 10.1 g/dL Low 12.0-16.0 Hematocrit 31 % Low 35-47 Mean Corpuscular Volume 83 fL N 80-97 Mean Corpuscular Hemoglobin 27 pg N 27-31 Mean Corpuscular HGB Conc 32 g/dL N 31-36 Red Cell Distribution Width 18 % High 10.5-15 Platelet Count 380 10^3/uL N 150-450 Mean Platelet Volume 8.3 fL N 7.4-10.4 Abs Neutrophils 4.7 10^3/uL N 1.5-7.7 Abs Lymphocytes 2.0 10^3/uL N 1.0-4.8 Abs Monocytes 0.4 10^3/uL N 0-0.8 Abs Eosinophils 0.1 10^3/uL N 0-0.6 Abs Basophils 0 10^3/uL N 0-0.2 Abs Nucleated RBC 0 10^3/uL Granulocyte % 64.5 % Lymphocyte % 27.5 % Monocyte % 6.2 % Eosinophil % 1.2 % Basophil % 0.6 % Nucleated Red Blood Cells % 0 Liver Function 07/04/2018 [facility] Total Protein 6.2 g/dL Low 6.4-8.[address] [place] [address] [phone] Albumin 3.5 g/dL N 3.2-5.2 Globulin 2.7 g/dL N 2-4 Albumin/Globulin Ratio 1.3 N 1-3 Total Bilirubin 0.50 mg/dL N 0.2-1.0 Direct Bilirubin 0.10 mg/dL N 0.03-0.18 Indirect Bilirubin 0.4 mg/dL N 0.3-1.0 Alkaline Phosphatase 55 U/L N 34-104 Alt 15 U/L N 7-52 Ast 16 U/L N 13-39 Laboratory test 07/04/2018 [facility] TSH (Thyroid 2.05 mcIU/mL N 0.34-5.[address] Stim [place]orm) [place] [address] [phone] Free T4 (Free Thyroxine) 0.73 ng/dL N 0.61-1.12 T3 Total 71 ng/dL Low 87-178 Erythrocyte Sed Rate 41 mm/Hr High 0-14 Anti Nuclear Antibody 0.5 U 4 Laboratory test finding 07/04/2018 [facility] Glucose Random 105 Hemoglobin A1c 9.1 High 5-7 Laboratory test finding 06/11/2018 [facility] Glucose Random 386 Ketones 0.2 Laboratory test finding 04/16/2018 [facility] Glucose Random 378 Hemoglobin A1c 9.7 High 5-7 Ketones 0.1 Istat BUN/Crea/Egfr/V 04/05/2017 [facility] Poc Bun 26 mg/dL High 9-[address] [place] [address] [phone] Poc Crea Mainmri 1.2 mg/dL High 0.6-0.9 GFR Non- Mmri 49.8 N >60 GFR Mainmri 64.0 N >60 5 Laboratory test 09/25/2016 [facility] Hemoglobin A1c 11.7 High 5-7 finding Rapid Influenza A 08/23/2016 [facility] Influenza A NEGATIVE N Negative 6 & B Molecular [address] [place] [address] [phone] Influenza B Molecular NEGATIVE N Negative Laboratory test 08/23/2016 [facility] Rapid Influenza SEE RESULT [address] [place] [address] [phone] CBC Auto Diff 08/23/2016 [facility] White Blood 11.4 High 3.5- [address] Count 10^3/uL 0.8 [place] [address] [phone] Red Blood Count 3.97 10^6/uL Low 4.0-5.4 Hemoglobin 11.2 g/dL Low 12.0-16.0 Hematocrit 34 % Low 35-47 Mean Corpuscular Volume 86 fL N 80-97 Mean Corpuscular Hemoglobin 28 pg N 27-31 Mean Corpuscular HGB Conc 33 g/dL N 31-36 Red Cell Distribution Width 16 % High 10.5-15 Platelet Count 292 10^3/uL N 150-450 Mean Platelet Volume 9 um3 N 7.4-10.4 Abs Neutrophils 8.8 10^3/uL High 1.5-7.7 Abs Lymphocytes 1.7 10^3/uL N 1.0-4.8 Abs Monocytes 0.8 10^3/uL N 0-0.8 Abs Eosinophils 0 10^3/uL N 0-0.6 Abs Basophils 0.1 10^3/uL N 0-0.2 Abs Nucleated RBC 0.01 10^3/uL N Granulocyte % 76.9 % N 38-83 Lymphocyte % 15.3 % Low 25-47 Monocyte % 7.2 % N 1-9 Eosinophil % 0 % N 0-6 Basophil % 0.6 % N 0-2 Nucleated Red Blood Cells % 0.1 N Inr/Protime 08/23/2016 [facility] Inr 0.97 N 0.89-1.[address] [place] [address] [phone] Laboratory test 08/23/2016 [facility] Partial 24.0 Low 26.0- 36.[address] [address] PTT [phone] Lactic Acid 1.9 mmol/L N 0.5-2.0 8 B-Type Natriuretic Peptide BNP 164 pg/mL High 9 Comp Metabolic Panel 08/23/2016 [facility] Sodium 135 mmol/L N 133-[address] [place] [address] [phone] Potassium 3.7 mmol/L N 3.5-5.0 Chloride 102 mmol/L N 101-111 Co2 Carbon Dioxide 23 mmol/L N 22-32 Anion Gap 10 mmol/L N 2-11 Glucose 226 mg/dL High 70-100 Blood Urea Nitrogen 14 mg/dL N 6-24 Creatinine 0.98 mg/dL High 0.51-0.95 BUN/Creatinine Ratio 14.3 N 8-20 Calcium 9.4 mg/dL N 8.6-10.3 Total Protein 7.5 g/dL N 6.4-8.9 Albumin 4.0 g/dL N 3.2-5.2 Globulin 3.5 g/dL N 2-4 Albumin/Globulin Ratio 1.1 N 1-3 Total Bilirubin 0.90 mg/dL N 0.2-1.0 Alkaline Phosphatase 52 U/L N 34-104 Alt 9 U/L N 7-52 Ast 10 U/L Low 13-39 Egfr Non- 63.2 N >60 Egfr 81.3 N >60 10 Laboratory test finding 08/23/2016 [facility] Lipase 23 U/L N 11.0-82.[address] [place] [address] [phone] C Reactive Protein 3.43 mg/L N < 5.00 11 HCG < 0.60 mIU/mL N 12 Rapid Influenza 07/06/2016 [facility] Influenza A NEGATIVE N Negative 13 A & B Molecular [address] [place] [address] [phone] Influenza B Molecular NEGATIVE N Negative Laboratory test 07/06/2016 [facility] Influenza A & B SEE RESULT [address] [place] [address] [phone] Comp Metabolic 06/21/2016 [facility] Sodium 133 mmol/L N 133- [address] [place] [address] [phone] Potassium 4.1 mmol/L N 3.5-5.0 Chloride 101 mmol/L N 101-111 Co2 Carbon Dioxide 25 mmol/L N 22-32 Anion Gap 7 mmol/L N 2-11 Glucose 270 mg/dL High 70-100 Blood Urea Nitrogen 20 mg/dL N 6-24 Creatinine 1.06 mg/dL High 0.51-0.95 BUN/Creatinine Ratio 18.9 N 8-20 Calcium 9.0 mg/dL N 8.6-10.3 Total Protein 6.5 g/dL N 6.4-8.9 Albumin 3.5 g/dL N 3.2-5.2 Globulin 3.0 g/dL N 2-4 Albumin/Globulin Ratio 1.2 N 1-3 Total Bilirubin 0.50 mg/dL N 0.2-1.0 Alkaline Phosphatase 49 U/L N 34-104 Alt 15 U/L N 7-52 Ast 14 U/L N 13-39 Egfr Non- 57.7 N >60 Egfr 74.2 N >60 15 Urine Microalbumin 06/21/2016 [facility] Urine Creatinine 224.74 mg/dL N Random [address] [place] [address] [phone] Ur Microalbumin (mg/L) 239.1 mg/L N Urine Microalbumin/Creatinine 106.3 ug/mg High <31 Laboratory test 06/21/2016 [facility] B-Type Natriuretic 12 pg/ mL N [address] [place] [address] [phone] Lipid Profile 06/21/2016 [facility] Triglycerides 77 mg/dL N 17 (Trig/Chol/HDL) [address] [place] [address] [phone] Cholesterol 207 mg/dL N 18 HDL Cholesterol 47.0 mg/dL N 19 LDL Cholesterol 145 mg/dL N 20 Laboratory test 06/21/2016 [facility] TSH (Thyroid 1.33 mcIU/mL N 0.34-5.60 [address] Stim [place]orm) [place] [address] [phone] CBC Auto Diff 06/21/2016 [facility] White Blood 6.2 10^3/uL N 3.5-10.[address] [place] [address] [phone] Red Blood Count 3.72 10^6/uL Low 4.0-5.4 Hemoglobin 10.5 g/dL Low 12.0-16.0 Hematocrit 32 % Low 35-47 Mean Corpuscular Volume 85 fL N 80-97 Mean Corpuscular Hemoglobin 28 pg N 27-31 Mean Corpuscular HGB Conc 33 g/dL N 31-36 Red Cell Distribution Width 13 % N 10.5-15 Platelet Count 280 10^3/uL N 150-450 Mean Platelet Volume 9 um3 N 7.4-10.4 Abs Neutrophils 3.1 10^3/uL N 1.5-7.7 Abs Lymphocytes 2.6 10^3/uL N 1.0-4.8 Abs Monocytes 0.3 10^3/uL N 0-0.8 Abs Eosinophils 0.1 10^3/uL N 0-0.6 Abs Basophils 0 10^3/uL N 0-0.2 Abs Nucleated RBC 0 10^3/uL N Granulocyte % 49.9 % N 38-83 Lymphocyte % 42.8 % N 25-47 Monocyte % 5.2 % N 1-9 Eosinophil % 1.6 % N 0-6 Basophil % 0.5 % N 0-2 Nucleated Red Blood Cells % 0 N Laboratory test finding 05/23/2016 [facility] House Hemoglobin A1c 10.6 High 5-7 1 Platelet count confirmed by estimate 2 SEE RESULT BELOW Name: FRANCISCA SELLERS : [address]: Jayla Bey MD Acct: [id number] Unit: [id number] AGE: 42 Location: Re08/26/18 SEX: F Status: REG REF SPEC: [id number] BILL: 08/26/[address]: Jayla Bey MD REQ: [id number] RECD: 08/26/18 STATUS: FERMIN ROCHA DR: Bruce Lopez MD _ ORDERED: PTH HANDLING CH, LEVEL 1, INTRAOP CON-GR, TOUCH PREP FINAL DIAGNOSIS Kidney, biopsy: Pending diagnosis from [facility]. PRE-OPERATIVE DIAGNOSIS Diabetic kidney D2, possible lupus, proteinuria GROSS DESCRIPTION 1. The specimen is received fresh labeled, Left Kidney, and consists of a 0.6 x 0.1 cm aggregate of east-pink soft tissue cores which are submitted entirely to [facility]. Per established hospital medical staff protocol, no tissue is submitted. Gross only. 2. The specimen is received fresh labeled, Left Kidney, and consists of two east-pink soft tissue cores measuring 0.7 x 0.1 cm and 1.8 x 0.1 cm. The specimen is submitted entirely to [facility]. Per established hospital medical staff protocol, no tissue is submitted. Gross only. Signed by and Reported on: Ruben Reeves MD 1624 END OF REPORT DEPARTMENT OF PATHOLOGY, [address] [place] [address] Ruben Reeves M.D. Director [facility] # [id number] 3 Because ethnic data is not always readily available, this report includes an eGFR for both -Americans and non- Americans. The National Kidney Disease Education Program (NKDEP) does not endorse the use of the MDRD equation for patients that are not between the ages of 18 and 70, are , have extremes of body size, muscle mass, or nutritional status, or are non- or non-. According to the National Kidney Foundation, irrespective of diagnosis, the stage of the disease is based on the level of kidney function: Stage Description GFR(mL/min/1.73 m(2)) 1 Kidney damage with normal or decreased GFR 90 2 Kidney damage with mild decrease in GFR 60-89 3 Moderate decrease in GFR 30-59 4 Severe decrease in GFR 15-29 5 Kidney failure <15 (or dialysis) 4 REFERENCE VALUE <=1.0 (Negative) Test Performed by: [facility] [address] [place] [id number] 5 Because ethnic data is not always readily available, this report includes an eGFR for both -Americans and non- Americans. The National Kidney Disease Education Program (NKDEP) does not endorse the use of the MDRD equation for patients that are not between the ages of 18 and 70, are , have extremes of body size, muscle mass, or nutritional status, or are non- or non-. According to the National Kidney Foundation, irrespective of diagnosis, the stage of the disease is based on the level of kidney function: Stage Description GFR(mL/min/1.73 m(2)) 1 Kidney damage with normal or decreased GFR 90 2 Kidney damage with mild decrease in GFR 60-89 3 Moderate decrease in GFR 30-59 4 Severe decrease in GFR 15-29 5 Kidney failure <15 (or dialysis) 6 Associate Editor: [id number] BRITTANI CUNNINGHAM 7 SEE RESULT BELOW Name: FRANCISCA SELLERS : [address]: Salomón Whittaker MD Acct: [id number] Unit: [id number] AGE: 40 Location: ED Re08/23/16 SEX: F Status: REG ER SPEC: [id number] BILL: 08/23/[address] [facility] [address]: Salomón Whittaker MD REQ: [id number] RECD: 08/23/16 STATUS: CALVIN ROCHA DR: Ruby Miller MD _ SOURCE: [facility]: ORDERED: Flu A B Request Procedure Result Reported Site Rapid Influenza A B Request Final 08/23/16- 1452 ML Specimen received for Influenza A/B Molecular testing * ML - MAIN LAB ([facility]) . END OF REPORT * ML=Testing performed at Main Lab DEPARTMENT OF PATHOLOGY, [address] [place] [address] Ruben Reeves M.D. Director [facility] # [id number] [facility] Severe Sepsis and Septic Shock Management Bundle Measure requires all lactic acids initially measuring >2.0 mmol/L be repeated. 9 >100 to <200 pg/mL: likely compensated congestive heart failure (CHF) 200 to 400 pg/mL: likely moderate CHF >400 pg/mL: likely moderate to severe CHF 10 Because ethnic data is not always readily available, this report includes an eGFR for both -Americans and non- Americans. The National Kidney Disease Education Program (NKDEP) does not endorse the use of the MDRD equation for patients that are not between the ages of 18 and 70, are , have extremes of body size, muscle mass, or nutritional status, or are non- or non-. According to the National Kidney Foundation, irrespective of diagnosis, the stage of the disease is based on the level of kidney function: Stage Description GFR(mL/min/1.73 m(2)) 1 Kidney damage with normal or decreased GFR 90 2 Kidney damage with mild decrease in GFR 60-89 3 Moderate decrease in GFR 30-59 4 Severe decrease in GFR 15-29 5 Kidney failure <15 (or dialysis) 11 Acute inflammation: >10.00 12 <5.0 Negative 5.0 - 25.0 Indeterminate (Repeat testing recommended after 72 hours) >25.0 Positive Perimenopausal women can display HCG levels of up to 20 mIU/mL 13 Associate Editor: [id number] DEBBIE PARK 14 SEE RESULT BELOW Name: FRANCISCA SELLERS : [address]: Ruby Miller MD Acct: [id number] Unit: [id number] AGE: 40 Location: [facility] Re07/06/16 SEX: F Status: REG REF SPEC: [id number] BILL: 07/06/[address] [facility] [address]: Ruby Miller MD REQ: [id number] RECD: 07/06/16 STATUS: COMP _ [facility]: ORDERED: Tereza Varela Request COMMENTS: [id number] Procedure Result Reported Site Rapid Influenza A B Request Final 07/06/16- 1347 ML Specimen received for Influenza A/B Molecular testing * ML - MAIN LAB ([facility]) . END OF REPORT * ML=Testing performed at Main Lab DEPARTMENT OF PATHOLOGY, [address] [place] [address] Ruben Reeves M.D. Director [facility] # [id number] 15 Because ethnic data is not always readily available, this report includes an eGFR for both -Americans and non- Americans. The National Kidney Disease Education Program (NKDEP) does not endorse the use of the MDRD equation for patients that are not between the ages of 18 and 70, are , have extremes of body size, muscle mass, or nutritional status, or are non- or non-. According to the National Kidney Foundation, irrespective of diagnosis, the stage of the disease is based on the level of kidney function: Stage Description GFR(mL/min/1.73 m(2)) 1 Kidney damage with normal or decreased GFR 90 2 Kidney damage with mild decrease in GFR 60-89 3 Moderate decrease in GFR 30-59 4 Severe decrease in GFR 15-29 5 Kidney failure <15 (or dialysis) 16 >100 to <200 pg/mL: likely compensated congestive heart failure (CHF) 200 to 400 pg/mL: likely moderate CHF >400 pg/mL: likely moderate to severe CHF 17 Desirable <150 Borderline high 150-199 High 200-499 Very High >500 18 Desirable <200 Borderline high 200-239 High >239 19 Low <40 Desirable: 40-60 High: >60 20 Desirable: <100 mg/dL Near Optimal: 100-129 mg/dL Borderline High: 130-159 mg/dL High: 160-189 mg/dL Very High: >189 mg/dL 21 FASTING 12 HOUR Procedures Date Code Description Status 08/14/2018 76992 EKG Tracing & Interpretation Completed 10/17/2017 62528 ECHO Transthoracic, Real-Time 2D With Doppler And Completed Color Flow 10/17/2017 90364 ECHO Transthoracic, Real-Time 2D With Doppler And Completed Color Flow 09/10/2017 19950 EKG Tracing & Interpretation Completed 05/16/2017 66938 ECHO Stress Test Incl Perf Contiuous ekg Monitoring Completed W/Phys Superv 03/20/2017 30002 ECHO Transthoracic, Real-Time 2D With Doppler And Completed Color Flow 02/27/2017 01387 Holter Monitor Review (24 hr)dr review & interp only Completed 02/23/2017 44568 ECG Monitor/Recording W/Visual Superimposition Completed Scanning 02/22/2017 89408 EKG Tracing & Interpretation Completed 10/25/2016 05416 ECHO Transthorasic Realtime 2D W Doppler & Color Flow Completed Hosp 09/04/2016 [id number] Diabetic Retinal Eye Exam Completed 04/01/2015 [id number] Diabetic Retinal Eye Exam Completed Encounters Type Date Location Provider Dx Diagnosis Office Visit 08/16/2018 [facility] Jayla R80.1 Persistent 10:00a MD Sotero proteinuria, unspecified N18.9 Chronic kidney disease, unspecified E11.22 Type 2 diabetes mellitus w diabetic chronic kidney disease E83.42 Hypomagnesemia Office Visit 08/14/2018 2:30p [facility] Durga Asif I10 Essential (primary) Jae Fung hypertension E11.8 Type 2 diabetes mellitus with unspecified complications I42.9 Cardiomyopathy, unspecified Office Visit 07/16/2018 1:30p [facility] Nurse Visit I10 Essential (primary) cc hypertension Office Visit 07/11/2018 3:30p [facility] Nay Davis I42.9 Cardiomyopathy, Foster, N.P. 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 E11.8 Type 2 diabetes mellitus with unspecified complications N94.4 Primary dysmenorrhea R80.1 Persistent proteinuria, unspecified R21 Rash and other nonspecific skin eruption I10 Essential (primary) hypertension Office Visit 06/11/2018 1:20p [facility] Zachery Marin Z79.4 senior care [facility]in[facility] of [facility] (current) use of insulin E11.8 Type 2 diabetes mellitus with unspecified complications E78.5 Hyperlipidemia, unspecified I10 Essential (primary) hypertension Office Visit 05/30/2018 9:00a [facility] Nay Davis I10 Essential ( primary) Of [facility] Radha Medrano hypertension E78.5 Hyperlipidemia, unspecified E11.8 Type 2 diabetes mellitus with unspecified complications R21 Rash and other nonspecific skin eruption Office Visit 04/16/2018 [facility] Zachery Marin, E11.8 Type 2 diabetes 3:00p Endocrinology of MD mellitus with [facility] unspecified complications E78.5 Hyperlipidemia, unspecified Office Visit 02/06/2018 2:40p [facility] Durga Asif R06.00 Dyspnea, Of Estephania Fung M.D. unspecified I42.9 Cardiomyopathy, unspecified I10 Essential (primary) hypertension Office Visit 09/10/2017 [place] Durga Asif I42.9 Cardiomyopathy, 3:40p Cardiology Jae Fung unspecified E78.5 Hyperlipidemia, unspecified I10 Essential (primary) hypertension R06.00 Dyspnea, unspecified N18.9 Chronic kidney disease, unspecified Office Visit 04/19/2017 10:00a [place] Yamile Price I42.9 Cardiomyopathy, [facility] [place] unspecified [facility] E78.5 Hyperlipidemia, unspecified I10 Essential (primary) hypertension Office Visit 03/21/2017 1:30p [facility] Bruce León N92.0 Excessive and Medicine Of Estephanai Lopez M.D. frequent menstruation with regular cycle R11.2 Nausea with vomiting, unspecified Office Visit 02/22/2017 2:00p [facility] Durga Asif R55 Syncope and Jae Fung collapse I42.9 Cardiomyopathy, unspecified E78.5 Hyperlipidemia, unspecified E66.9 Obesity, unspecified R94.31 Abnormal electrocardiogram [ECG] [EKG] Office Visit 10/26/2016 2:37p [facility] Mirna Powell, R55 S[facility]ope and Assoc,sharyn Rowe collapse Hospitalists E11.8 Type 2 diabetes mellitus with unspecified complications E78.5 Hyperlipidemia, unspecified Office Visit 10/24/2016 2:36p [facility] Jim Hernandez, R55 Syncope and Assoc,pc N.PSmith collapse Hospitalists E78.5 Hyperlipidemia, unspecified E11.8 Type 2 diabetes mellitus with unspecified complications Office Visit 09/25/2016 10:50a [facility] Arnold Beltran E11Smith65 Type 2 diabetes Amaury Miller M.D. mellitus with [place] hyperglycemia N92.0 Excessive and frequent menstruation with regular cycle Office Visit 08/30/2016 10:10a [facility] Arnold Miller, K57.92 Dvtrcli of Amaury Montana M.D. intest, part [place] unsp, w/o perf or abscess w/o bleed E16.2 Hypoglycemia, unspecified Office Visit 08/23/2016 10:10a [facility] Arnold Beltran R11.2 Nausea with Amaury Miller M.D. vomiting, [place] unspecified R42 Dizziness and giddiness Office Visit 07/06/2016 8:30a [facility] Arnold Mehta Type 2 diabetes Amaury Miller M.D. mellitus with [place] hyperglycemia D64.9 Anemia, unspecified N92.0 Excessive and frequent menstruation with regular cycle I10 Essential (primary) hypertension J06.9 Acute upper respiratory infection, unspecified Office Visit 05/23/2016 2:20p [facility] Arnold Mehta Type 2 diabetes Amaury Miller M.D. mellitus with [place] hyperglycemia I50.42 Chronic combined systolic and diastolic hrt fail E78.5 Hyperlipidemia, unspecified I10 Essential (primary) hypertension Z23 Encounter for immunization Z91.14 Patient's other noncompliance with medication regimen Plan of Treatment Future Appointment(s):09/17/2018 9:20 am - Zachery Marin MD at [place] [place] [facility]09/10/2018 11:30 am - Nay Medrano NSmithP. at [place] [facility]09/05/2018 9:00 am - [place] ECHO Schedule at [place] Micvgvqphy94/11/2019 3:00 pm - Jayla Bey MD at [facility] Tfsqsxdmme35/04/ 2019 10:00 am - Armen Fuentes M.D. at [facility]08/29/2018 - Noemí Driver, MDD25.9 Leiomyoma of uterus, unspecifiedReferral:Bruce Lopez MD, Radiology,Angiography,InvN94.5 Secondary dysmenorrhea
[2018-09-25] MEDS ORDERED: Ondansetron INJ* 2 MG/ML VIAL IV ONE (14:53)
[2018-09-25] MEDS ORDERED: NS 0.9% 1000 ML** 1,000 ML IV ONE ×2 (14:53→15:06)
--- NOTE | 2018-09-25 14:56 | ED ---
Nausea/Vomiting/Diarrhea HPI - HPI Summary HPI Summary: Patient is a 42-year-old female who presents emergency department for 4 days vomiting and lower abdominal pain. Patient has a history of diabetes and hypertension. Patient states she has not been able to take any of her medication in the last 4 days. Patient also notes she seems to get these symptoms when she has her menstrual cycle and has had this pain and vomiting in the past. Patient otherwise denies fever, chills, chest pain, shortness of breath, urinary symptoms. Symptoms are moderate in severity. No current modifying factors. - History of Current Complaint Chief Complaint: EDNauseaVomitDiarrh Stated Complaint: VOMITING Time Seen by Provider: 09/25/18 14:53 Hx Obtained From: Patient Pain Intensity: 5 - Allergies/Home Medications Allergies/Adverse Reactions: Allergies Allergy/AdvReac Type Severity Reaction Status Date / Time SHELDON Inhibitors Allergy Intermediate See Comment Verified 09/25/18 15:14 Home Medications: Home Medications DULoxetine DR CAP* [Cymbalta CAP*] 20 mg PO EVERY OTHER DAY 09/25/18 [History Confirmed 09/25/18] Losartan/Hydrochlorothiazide [Losartan Potassium/Hydroc 50-12.5 mg] 1 tab PO DAILY 09/25/18 [History Confirmed 09/25/18] Metoprolol Succinate XL TAB* [Toprol XL TAB*] 25 mg PO DAILY 09/25/18 [History Confirmed 09/25/18] PMH/Surg Hx/FS Hx/Imm Hx Previously Healthy: Yes Endocrine/Hematology History: Reports: Hx Diabetes - INSULIN DEPENDANT Cardiovascular History: Reports: Hx Congestive Heart Failure, Hx Hypertension Denies: Hx Pacemaker/ICD Respiratory History: Denies: Hx Asthma History: Denies: Hx Renal Disease Sensory History: Reports: Hx Contacts or Glasses Denies: Hx Hearing Aid Opthamlomology History: Reports: Hx Contacts or Glasses Psychiatric History: Reports: Hx Depression Denies: Hx Panic Disorder Infectious Disease History: No Infectious Disease History: Denies: Traveled Outside the [place] in Last 30 Days - Family History Known Family History: Positive: Diabetes, Non-Contributory - Social History Occupation: Employed Full-time Lives: With Family Alcohol Use: None Hx Substance Use: No Substance Use Type: Reports: None Hx Tobacco Use: No Smoking Status (MU): Never Smoked Tobacco Review of Systems Constitutional: Negative Negative: Fever, Chills Cardiovascular: Negative Negative: Palpitations, Chest Pain Respiratory: Negative Negative: Shortness Of Breath, Cough Positive: Abdominal Pain, Vomiting, Nausea. Negative: Diarrhea Genitourinary: Negative Negative: frequency, flank pain Musculoskeletal: Negative Skin: Negative Neurological: Negative All Other Systems Reviewed And Are Negative: Yes Physical Exam Triage Information Reviewed: Yes Vital Signs On Initial Exam: Initial Vitals Temp Pulse Resp BP Pulse Ox 98.1 F 107 15 168/116 100 09/25/18 13:33 09/25/18 13:33 09/25/18 13:33 09/25/18 13:33 09/25/18 13:33 Vital Signs Reviewed: Yes Appearance: Positive: Pain Distress - Pt. lying in bed, appears in pain but nontoxic. Skin: Positive: Warm, Dry Head/Face: Positive: Normal Head/Face Inspection Eyes: Positive: Normal, EOMI Neck: Positive: Supple Respiratory/Lung Sounds: Positive: Clear to Auscultation, Breath Sounds Present Cardiovascular: Positive: Normal, RRR Abdomen Description: Positive: Other: - Abd. is soft with diffuse tenderness, majority of pain is to R and L LQ with guarding. Neurological: Positive: CN Intact II-III Psychiatric: Positive: Affect/Mood Appropriate Diagnostics - Vital Signs Vital Signs Temp Pulse Resp BP Pulse Ox 09/25/18 13:33 98.1 F 107 15 168/116 100 - Laboratory Result Diagrams: 09/25/18 15:24 09/25/18 15:24 Lab Statement: Any lab studies that have been ordered have been reviewed, and results considered in the medical decision making process. Naus/Vom/Diarrhea Course/Dx - Course Course Of Treatment: Patient presenting with vomiting and abdominal pain. She is afebrile. Blood pressure elevated 178/100, heart rate mildly tachycardic 107 bpm, oxygen saturation 100% on room air. She denies chest pain or difficulty breathing. Patient has poor vascular access and IV access was delayed but eventually obtained. Patient was started on IV fluids, morphine, Zofran. CBC is unremarkable. CMP shows renal insufficiency at her baseline. Low K 3.0, Cl 96, agap 15, glucose 336, lactic acid 2.8. CT abd/pelvic per radiology: IMPRESSION: 1. SMALL AMOUNT OF FREE INTRAPERITONEAL FLUID IN THE PELVIS. 2. FIBROID UTERUS. 3. HEPATIC STEATOSIS. 4. SOFT TISSUE THICKENING IN THE LEFT POSTERIOR PARARENAL SPACE. RECOMMEND CORRELATION. WITH PRIOR SURGICAL AND TRAUMA HISTORY. IF THERE IS NO HISTORY OF SURGERY OR TRAUMA IN. THIS REGION THEN RECOMMEND A FOLLOW-UP CONTRAST ENHANCED CT OF THE ABDOMEN IN 3 MONTHS. TIME TO DEMONSTRATE STABILITY. Pt. notes she had a kidney biopsy last week. 1700: Pt. re-examined. She states she is feeling a lot better and has had no further vomiting. BP continue to be elevate. Pt. has her BP medications with her and just took amlodipine and metoprolol. HR has improved to in the 80' s. Glucose >300, 5units subc insulin ordered. Plan will be is pt. continues to tolerate PO and her BP improves, and repeat lactic acid has improved after IV fluids will send home. If pt. is unable to tolerate PO will admit. Pt. will be signed out to Lillian Judd PA-C for repeat labs and disposition. - Differential Dx/Diagnosis Differential Diagnoses - Female: Appendicitis, Bowel Obstruction, Diverticulitis , Pancreatitis, Gastroenteritis (Viral), Gastroenteritis (Bacterial), Dehydration Provider Diagnosis: Vomiting, Dehydration Discharge - Sign-Out/Discharge Documenting (check all that apply): Sign-Out Patient Signing out patient TO: Shara Judd - Discharge Plan Referrals: Zachery Marin MD [Primary Care Provider] -
[2018-09-25] MEDS ORDERED: Morphine VIAL* 10 MG/ML 1 ML VIAL IV ONE (15:08)
[2018-09-25 15:34] LABS: ABS Basophils 0.1 10^3/ul (0-0.2); ABS Eosinophils 0 10^3/ul (0-0.6); ABS Lymphocytes 2.4 10^3/ul (1.0-4.8); ABS Monocytes 0.6 10^3/ul (0-0.8); ABS Neutrophils 7.5 10^3/ul (1.5-7.7); ABS Nucleated RBC 0 10^3/ul; Eosinophil % 0 %; Hematocrit 37 % (35-47); Hemoglobin 12.2 g/dl (12.0-16.0); Lymphocyte % 22.8 %; Mean Corpuscular HGB Conc 33 g/dl (31-36); Mean Corpuscular Hemoglobin 31 pg (27-31); Mean Corpuscular Volume 92 fL (80-97); Mean Platelet Volume 8.5 fL (7.4-10.4); Nucleated Red Blood Cells % 0.1; Platelet Count 321 10^3/ul (150-450); Red Blood Count 3.97 10^6/ul (4.00-5.40); Red Cell Distribution Width 22 % (10.5-15); White Blood Count 10.6 10^3/ul (3.5-10.8)
[2018-09-25 15:55] LABS: Albumin 4.2 g/dL (3.2-5.2); Albumin/Globulin Ratio 1.1 (1-3); BUN/Creatinine Ratio 16.4 (8-20); Calcium 9.5 mg/dL (8.6-10.3); EGFR African American 47.8 (>60); EGFR Non-African American 39.5 (>60); Total Bilirubin 1.4 mg/dL (0.2-1.0); Total Protein 8.2 g/dL (6.4-8.9)
[2018-09-25 16:05] LABS: HCG Pregnancy 1.44 mIU/mL
[2018-09-25] MEDS ORDERED: Iodixanol* (CONTRAST) 320 MG/ML 100 ML SDV IV ONE (16:10)
[2018-09-25] MEDS ORDERED: Potassium Chlor TAB* 20 MEQ TAB.ER PO ONE (17:21)
[2018-09-25] MEDS ORDERED: Insulin REGULAR(*) 1 UNITS UNIT SUBCUT ONE (17:42)
[2018-09-25] MEDS ORDERED: cloNIDine TAB* 0.1 MG PO ONE (18:33)
--- NOTE | 2018-09-25 18:36 | ED ---
Progress - Progress Note Progress Note: patient signed out by terrance AZEVEDO pending fluids and PO challenge after completing fluids patient feeling better. patient tolerated water but does not want food at this time. gave dose of clondine along with bp meds as has not taken them in a while Re-Evaluation - Re-Evaluation First Eval Re-Evaluation Time: 18:36 Comment: feeling well enought to go home, does not want to eat anything but tolerated water Course/Dx - Course Course Of Treatment: patient was signed out by Terrance pending fluids for dispo. patient was given fluids and potassium and is feeling better. patient able to tolerate water in the ED. discussed with patient admission vs going home and patient states feel well enough to go home. did not want to try any food in ED. will discharge with zofran. told if unable to keep liquids down to return. patient understand and agrees with plan . - Diagnoses Provider Diagnoses: Vomiting, Dehydration, Hypertension Discharge - Sign-Out/Discharge Documenting (check all that apply): Patient Departure, Receiving Sign-Out Receiving patient FROM: Terrance Garay Patient Received Moderate/Deep Sedation with Procedure: No - Discharge Plan Condition: Good Disposition: HOME Prescriptions: Magnesium Chloride 64 mg PO DAILY #3 tablet. Ondansetron TAB* [Zofran 4 MG Tab*] 4 mg PO Q6H PRN #20 tab PRN Reason: Nausea Patient Education Materials: Acute Nausea and Vomiting (ED) Referrals: Zachery Marin MD [Primary Care Provider] - Additional Instructions: Can take Zofran every 6 hours as needed for nausea Drink small amounts of fluid as tolerated When able to eat follow BRAT diet: Bananas, rice, applesauce, toast Take ibuprofen or Tylenol for pain as needed every 6 hours make sure to take your normal medication daily Follow up with primary within 5 days Return to ED if develop any new or worsening symptoms - Billing Disposition and Condition Condition: GOOD Disposition: Home
[2018-09-25 18:39] LABS: Magnesium 1.6 mg/dL (1.9-2.7)
[2018-09-25 19:22] VITALS: BP 172/94
== END 2018-09-25 19:19 | disposition home or self-care (01) ==
LOC: ED 13:30
DX: R11.10 Vomiting, unspecified (principal); E86.0 Dehydration; I10 Essential (primary) hypertension; E11.9 Type 2 diabetes mellitus without complications; Z79.4 Long term (current) use of insulin; I50.9 Heart failure, unspecified
CPT/HCPCS: 36415; 74177; 80053; 83605; 83690; 83735; 84702; 85025; 93005; 96361; 96374; 96375; 99283; A9270-GY; J2270; J2405; Q9967

== ENCOUNTER 2019-01-02 11:04 | Observation (INO) | payer OTHER ==
[2019-01-02] MEDS ORDERED: Ondansetron INJ* 2 MG/ML VIAL ONE (11:29)
[2019-01-02] MEDS ORDERED: Scopolamine 1.5 mg* PATCH ONE (11:29)
[2019-01-02] MEDS ORDERED: Naproxen TAB* 250 MG ONE (11:30)
[2019-01-02] MEDS ORDERED: LORazepam TAB(*) 1 MG ONE (11:30)
[2019-01-02] MEDS ORDERED: oxyCODONE SR TAB(*) 10 MG TAB.SR ONE (11:31)
[2019-01-02] MEDS ORDERED: Clindamycin 900 MG/D5W BAG(*) 900 MG/50 ML BAG IVPB ONE (12:00)
[2019-01-02] MEDS ORDERED: Clindamycin 900 MG IVPREMIX(* 900 MG/50 ML SDV IV ONE (12:00)
[2019-01-02 12:55] LABS: Anion Gap 9 mmol/L (2-11); CO2 Carbon Dioxide 26 mmol/L (22-32); Chloride 100 mmol/L (101-111); Potassium 3.6 mmol/L (3.5-5.0); Sodium 135 mmol/L (135-145)
[2019-01-02 12:59] LABS: HCG Pregnancy < 0.60 mIU/mL
[2019-01-02 13:01] LABS: Blood Urea Nitrogen 21 mg/dL (6-24); EGFR African American 42.2 (>60); EGFR Non-African American 34.8 (>60); Glucose 207 mg/dL (70-100)
[2019-01-02] MEDS ORDERED: Lidocaine 1% INJ* 10 MG/ML 30 ML SDV ONE (13:16)
[2019-01-02] MEDS ORDERED: Iodixanol 320 (CONTRAST) 100 ML SDV ONE ×2 (13:16→14:56)
[2019-01-02] MEDS ORDERED: Heparin 2 UNITS/ML IVPREMIX* 3,000 UNIT/1,500 ML BAG IV ONE (13:17)
[2019-01-02] MEDS ORDERED: fentaNYL* 50 MCG/ML 5 ML VIAL (250 MCG VIAL) ONE (13:45)
[2019-01-02] MEDS ORDERED: Midazolam* 1 MG/ML 5 ML VIAL (5 MG) ONE (13:45)
[2019-01-02] MEDS ORDERED: nitroGLYCERIN DRIP* 25,000 MCG/250 ML BTL ONE (13:45)
[2019-01-02] MEDS ORDERED: Heparin(*) 1000 UNIT/ML 10 ML VIAL CATH LAB IV ONE (13:45)
[2019-01-02] MEDS ORDERED: Ketorolac INJ* 30 MG/ML 1 ML VIAL ONE (13:45)
[2019-01-02] MEDS ORDERED: VERAPAMIL 2.5 MG/ML 2 ML VIAL ** 5 mg/2 ml ONE (13:45)
[2019-01-02] MEDS ORDERED: HYDROmorphone PCA* 20 MG/20 ML PCA.SYRING PCA SCH (15:00)
[2019-01-02] MEDS ORDERED: HYDROmorphone PCA* 20 MG/20 ML PCA.SYRING ONE (15:39)
[2019-01-02] MEDS ORDERED: fentaNYL* 50 MCG/ML 2 ML VIAL (100 MCG VIAL) ONE (15:57)
[2019-01-02] MEDS ORDERED: HYDROmorphone INJ1* 1 MG/ML SYRINGE ONE (17:23)
[2019-01-02] MEDS ORDERED: hydrALAZINE IV* 20 MG/ML VIAL ONE (20:05)
[2019-01-02] MEDS ORDERED: hydrALAZINE IV* 20 MG/ML VIAL IV SLOW PU PRN (20:06)
[2019-01-02] MEDS ORDERED: Dextrose 50% Syringe 50 ML* 25 GM/50 ML SYRINGE IV PUSH PRN (21:14)
[2019-01-02] MEDS ORDERED: Ketorolac INJ* 15 MG/ML 1 ML VIAL IV PUSH SCH ×2 (22:00)
[2019-01-02] MEDS ORDERED: Ketorolac INJ* 15 MG/ML 1 ML VIAL IV PUSH PRN (22:00)
[2019-01-02] MEDS ORDERED: Losartan TAB* 25 MG PO ONE (22:11)
[2019-01-02] MEDS ORDERED: NS 0.9% 1000 ML** 1,000 ML IV SCH (22:15)
[2019-01-02] MEDS: Ondansetron INJ* 2 MG/ML VIAL IV SCH (22:35)
[2019-01-02] MEDS: Ketorolac INJ* 15 MG/ML 1 ML VIAL IV PUSH SCH (22:38)
[2019-01-03] MEDS: Ketorolac INJ* 15 MG/ML 1 ML VIAL IV PUSH SCH (03:59)
[2019-01-03] MEDS: Ondansetron INJ* 2 MG/ML VIAL IV SCH (03:59)
[2019-01-03] MEDS: Insulin LISPRO* 1 UNITS UNIT SUBCUT SCH ×3 (08:00→18:24)
[2019-01-03] MEDS ORDERED: LORazepam TAB(*) 0.5 MG PO PRN (08:51)
[2019-01-03] MEDS ORDERED: Hydrochlorothiazide TAB* 25 MG PO SCH (09:00)
[2019-01-03] MEDS ORDERED: Losartan TAB* 25 MG PO SCH (09:00)
[2019-01-03] MEDS ORDERED: buPROPion SR TAB.SR* 100 MG PO SCH (09:00)
[2019-01-03] MEDS ORDERED: Magnesium Chloride EC TAB* 64 MG PO SCH (09:00)
[2019-01-03] MEDS ORDERED: Metoprolol Succinate XL TAB* 25 MG PO SCH (09:00)
--- NOTE | 2019-01-03 09:11 | PN ---
Progress Note - Progress Note Date of Service: 01/03/19 SOAP: Subjective: Patient reports pain of 4/10. + nausea, but no emesis. Has drank ice water overnight, but no solid food. + void. Denies left wrist pain over arteriotomy site. Objective: Selected Entries 01/03/19 07:30 Temperature 97.6 F Temperature Oral Source Pulse Rate 96 Respiratory 16 Rate Blood Pressure 153/88 (mmHg) Blood Pressure 109 Mean O2 Sat by Pulse 100 Oximetry Patient in mild distress and breathing rapidly. AAO x 3 Abd is soft, minimally tender with palpation Left wrist arteriotomy site is soft, nontender Dressing is C/D/I 1+ pulse at left radial artery Motor function of left forearm and hand is intact Sensation intact at left R/M/U nerve distributions Assessment: 43 YOF POD #1 s/p Uterine Fibroid Arterial Embolization from left radial arteriotomy. Pain and nausea are reasonably well controlled, but patient is anxious and hyperventilating. Plan: 1. Add Ativan 1 mg PO now, then 0.5 mg PO every 8 hours as part of post UFE regimen. 2. Breakfast tray to include "mild" items (E.g. oatmeal, toast, yogurt) 3. Ambulation around the unit every 90 minutes until D/C. 4. Due to renal insufficiency the Toradol dosage will be reduced to 5 mg PO every 8 hours x 3 days. 5. Outpatient medications as follows: Toradol 5 mg PO Q 8 hours x 3 days (Dispense #9 with no refills) AFTER Toradol is complete: Ibuprofen 400 mg PO Q 6 hours OR Naprosyn 225 mg PO Q 8 hours PRN for 3 days (do not take both) [place] 5/325, take 1 or 2 tablets by mouth Q 6 hours PRN breakthrough pain ( Dispense #40) Ativan 0.5 mg PO every 8 hours by mouth x 5 days (Dispense #20 with no refills) Zofran 4 mg PO Q 6 hours x 7 days (Dispense #30 with one refill) Scopolamine 1.5 mg transdermal to mastoid process. On 01/05/19 at 900 AM, remove current patch, replace with new patch and wear x 3 days. Drink one cup of laxative tea daily (For example, "Smooth Move") for one week.
[2019-01-03] MEDS ORDERED: HYDROcodone/ACETAMIN 5-325 MG* 1 TAB PO PRN (09:13)
[2019-01-03] MEDS: Ondansetron TAB* 4 MG PO SCH ×2 (10:51→15:48)
[2019-01-03] MEDS: Ketorolac TAB * 10 MG TAB PO SCH ×2 (10:52→17:15)
[2019-01-03 15:22] VITALS: BP 152/100
[2019-01-03] MEDS ORDERED: Prochlorperazine TAB* 10 MG PO ONE (16:54)
[2019-01-03] MEDS ORDERED: Atorvastatin* 20 MG TAB PO SCH (20:00)
--- NOTE | 2019-01-04 15:01 | DS ---
CC: Dr. Zachery Marin * [facility] MEDICINE DISCHARGE SUMMARY: DATE OF ADMISSION: 01/02/19 DATE OF DISCHARGE: 01/03/19 PRIMARY CARE PHYSICIAN: Dr. Zachery Marin. ATTENDING PHYSICIAN: Dr. Shayy Lu * (dictation provided by Pearl Doll NP ). PRIMARY DIAGNOSIS: Status post uterine fibroid embolization for uterine leiomyomas. SECONDARY DIAGNOSES: 1. Type 2 diabetes. 2. Hypertension. 3. Hyperlipidemia. 4. Chronic pelvic pain secondary to uterine leiomyomas. 5. 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 6. Diverticulosis of sigmoid colon. 7. Microproteinuria. 8. Chronic kidney disease. 9. Depression. 10. History of cardiomyopathy. MEDICATIONS AT THE TIME OF DISCHARGE: 1. Metoprolol succinate 25 mg p.o. daily. 2. Losartan/hydrochlorothiazide 50/12.5 one tab p.o. daily. 3. Cyclobenzaprine 5 to 10 mg p.o. daily p.r.n. 4. Atorvastatin 20 mg p.o. daily. 5. Ferrous sulfate with ascorbic acid 1 tab p.o. daily. 6. Loratadine 5 mg p.o. daily. 7. Magnesium chloride 64 mg p.o. daily. 8. Xultophy 100/3.6, 40 units subcutaneously daily. 9. Bupropion SR 100 mg p.o. daily. 10. Pioglitazone/metformin 15/500 one tab p.o. daily. 11. Ondansetron 4 mg p.o. q.6 hours p.r.n. 12. Scopolamine patch q.72 hours. 13. Lorazepam 0.5 mg p.o. q.8 hours p.r.n. 14. Ketorolac 5 mg p.o. q.8 hours p.r.n. 15. Ibuprofen 400 mg p.o. q.6 hours p.r.n. 16. Hydrocodone/acetaminophen 5/325 one to two tabs p.o. q.6 hours p.r.n. HOSPITAL COURSE: Ms. Ledbetter is a 43-year-old female. She presented to the hospital on 01/02/19 with plan for a uterine fibroid embolization with Dr. Lopez for chronic pelvic pain and heavy menses. She has tolerated the procedure well. Her pain has been reasonably controlled as is her nausea. She is tolerating minimal oral intake. She has been up and ambulating on the unit independently and is safe and appropriate for discharge to home with the above mentioned additional medications for pain and nausea control. Ms. Ledbetter is medically stable. DISPOSITION: Home. DIET: Low carb, low salt, low fat. ACTIVITY: As tolerated as outlined in the discharge instructions per Dr. Lopez. FOLLOWUP PLANS: Please follow up per the discharge instructions and Dr. Lopez' s note and then please follow up with Dr. Driver in the next several weeks regarding this acute procedure. TIME SPENT: Approximately 60 minutes was spent in the discharge of this patient , more than half the time was spent with the patient at the bedside reviewing the events leading up to and during this hospitalization, performing the physical examination, and reviewing my plan of care. PEARL DOLL NP [id number]/[facility] #: [id number] JOSEPH
--- NOTE | 2019-01-04 15:59 | HP ---
CC: Dr. Zachery Marin * [facility] MEDICINE HISTORY AND PHYSICAL: DATE OF ADMISSION: 01/02/19 PRIMARY CARE PHYSICIAN: Dr. Zachery Marin. ATTENDING PHYSICIAN: Dr. Shayy Lu * (dictation provided by Pearl Doll NP ). REASON FOR ADMISSION: Uterine fibroid, status post uterine fibroid embolization. HISTORY OF PRESENT ILLNESS: Ms. Ledbetter is a 43-year-old female with a past medical history of diabetes, hypertension, obesity, and chronic pelvic pain, who presented to the hospital for uterine fibroid embolization with Dr. Lopez on 01/02/19. I refer you to his H and P for complete details. In brief, the patient has had chronic heavy menses and pelvic pain. She was evaluated by Dr. Driver and then referred to Dr. Lopez due to the presence of numerous fibroids. PAST MEDICAL HISTORY: 1. Diabetes. 2. Dyslipidemia. 3. Hypertension. 4. 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 5. Diverticulosis of sigmoid colon. 6. Microproteinuria. 7. History of noncompliance with medications. 8. Polycystic ovaries with obesity. 9. History of cardiomyopathy in 2006. MEDICATIONS: 1. Bupropion SR 100 mg p.o. daily. 2. Pioglitazone/metformin 1 tab p.o. daily. 3. Ondansetron p.r.n. 4. Metoprolol succinate 25 mg p.o. daily. 5. Magnesium chloride 64 mg p.o. daily. 6. Losartan/hydrochlorothiazide 50/12.5 one tab p.o. daily. 7. Xultophy insulin 40 units subcutaneously daily. 8. Ibuprofen p.r.n. 9. Ferrous sulfate 1 tab p.o. daily. 10. Loratadine 5 mg p.o. daily. 11. Cyclobenzaprine p.r.n. 12. Atorvastatin 20 mg p.o. daily. FAMILY HISTORY: Reviewed and noncontributory. SOCIAL HISTORY: No prior alcohol, tobacco, or drug use. 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 REVIEW OF SYSTEMS: A 14-point review of systems was completed with Ms. Ledbetter and all those not mentioned above were negative. PHYSICAL EXAMINATION GENERAL: Ms. Ledbetter is lying in the bed. She is easily arousable, but remained sedated as she is in the immediate postoperative period. She has a friend at the bedside. She is not in any acute distress. VITAL SIGNS: Temperature 96.8, pulse rate 71, respiratory rate 95, O2 saturation 95% on 3 L nasal cannula in the PACU, blood pressure 163/94. LUNGS: Clear to auscultation bilaterally with no accessory muscle use and good aeration. HEART: S1, S2. No murmur, rub, or gallop and regular. ABDOMEN: Soft and nontender. Bowel sounds are positive x4. EXTREMITIES: No cyanosis or edema. SKIN: Intact. DIAGNOSTIC STUDIES/LAB DATA: Sodium 135, potassium 3.6, chloride 100, serum bicarbonate 26, BUN 21, creatinine 1.62 slightly elevated from baseline. Most recent CBC was from 11/05/18, showing WBC 7.3, hemoglobin 12.1, hematocrit 35, platelet count 303. ASSESSMENT AND PLAN: Ms. Ledbetter is a 43-year-old female with past medical history of diabetes, obesity, hypertension, and hyperlipidemia, who presents to the hospital today with a planned uterine fibroid embolization for chronic pelvic pain and heavy menses. Our plan is as follows: 1. Status post uterine fibroid embolization: The patient will have pain medication and anti-nausea medication per routine, status post uterine fibroid embolization. We will advance her diet slowly. 2. Type 2 diabetes: The patient takes Xultophy, which is not available on formulary. I anticipate that she will be leaving by likely midafternoon tomorrow. Plan to check blood glucose q.a.c. with lispro sliding scale. If need be, we can add Lantus. I will also speak to the patient about whether or not she brought her own medication in, which may make management easier, but regardless she will need to have adjustment of her meds at least in the short term while inpatient due to likely poor oral intake. 3. Hypertension: Plan to hold blood pressure medications. We will monitor closely and add those back in as needed, but we will continue metoprolol. 4. Depression: Continue bupropion. 5. DVT prophylaxis with SCDs. 6. Code status is full code. TIME SPENT: Approximately 60 minutes was spent on the admission of this patient , more than half the time spent with the patient at the bedside reviewing the events leading up to this hospitalization, performing the physical examination and reviewing my plan of care. PEARL DOLL NP [id number]/[facility] #: [id number] JOSEPH
== END 2019-01-03 19:50 | disposition home or self-care (01) ==
LOC: CHICATH 11:04 → SSU 21:02
PROVIDERS: ADMIT Internal Medicine; ATTEND Hospitalist
DX: D25.9 Leiomyoma of uterus, unspecified (principal); N92.0 Excessive and frequent menstruation with regular cycle; E78.5 Hyperlipidemia, unspecified; R10.2 Pelvic and perineal pain; R11.2 Nausea with vomiting, unspecified; H35.00 Unspecified background retinopathy; E11.3299 Type 2 diabetes mellitus with mild nonproliferative diabetic retinopathy without macular edema, unspecified eye; K57.90 Diverticulosis of intestine, part unspecified, without perforation or abscess without bleeding; R80.9 Proteinuria, unspecified; I12.9 Hypertensive chronic kidney disease with stage 1 through stage 4 chronic kidney disease, or unspecified chronic kidney disease; N18.9 Chronic kidney disease, unspecified; F32.9 Major depressive disorder, single episode, unspecified; I42.9 Cardiomyopathy, unspecified; E66.9 Obesity, unspecified
CPT/HCPCS: 36415; 37243; 76937; 80048; 84702; 96374; 96375; 99156; 99157; A9270-GY; C1769; C1884; C1887; G0378; J0360; J1170; J1644; J1885; J2250; J2405; J3010; Q0164